=== PATIENT | male | born 1970 | race Native Hawaiian/Other Pacific Islander ===

== ENCOUNTER → 2020-05-31 | Outpatient (CLI) | payer BC ==
--- NOTE | 2020-05-31 08:26 | XR ---
EXAMINATION TYPE: XR knee complete RT DATE OF EXAM: 05/31/2020 COMPARISON: None HISTORY: Pain right knee TECHNIQUE: Three-view right knee FINDINGS: Joint spaces preserved. No acute fractures or dislocations are evident. Small to moderate j oint effusion may be present. IMPRESSION: 1. Small to moderate joint effusion. 2. No acute osseous abnormality. 3 follow-up exams can be performed 7-10 days from acute trauma for c ontinued pain.
== END | disposition home or self-care (01) ==
LOC: RADXRMAIN 07:35
PROVIDERS: ATTEND Family Medicine
DX: M25.561 Pain in right knee (principal)

== ENCOUNTER 2024-05-12 01:16 | Emergency (ER) | payer BC ==
[2024-05-12 01:24] VITALS: TEMP 97.9
--- NOTE | 2024-05-12 01:43 | ED ---
Neuro HPI - General Chief Complaint: Neuro Symptoms/Deficit Stated Complaint: Neuro Symptoms Time Seen by Provider: 05/12/24 01:17 Source: patient, RN notes reviewed, old records reviewed Mode of arrival: EMS Limitations: no limitations - History of Present Illness Is the patient presenting with stroke symptoms?: No -: minutes(s) Initial Comments: This is a 53-year-old male with sudden onset of vertiginous symptoms left arm numbness requiring pain weak and tingling of the arm and throughout his left side left side. Patient also noticed that the room was spinning, continued to have room spinning off balance since he fell off his bed landing on the ground because he felt significantly off balance. Patient's balance issues have improved on arrival to the emergency department, also felt maybe shortness of breath and concern for possible syncopal event. Patient feels better on ambulance arrival into the ER feels well on arrival to the emergency department. Place: home Severity: severe Improves With: none Worsens With: none Context: sudden onset Associated Symptoms: denies other symptoms Treatments Prior to Arrival: none - Related Data Home Medications: Home Medications Medication Instructions Recorded Confirmed Loratadine 10 mg PO DAILY 05/16/24 05/16/24 lisinopriL [Zestril] 10 mg PO DAILY 05/16/24 05/16/24 Previous Rx's Medication Instructions Recorded Aspirin [Adult Low Dose Aspirin EC] 81 mg PO DAILY 30 Days #30 tab 05/20/24 Atorvastatin [Lipitor] 20 mg PO HS 30 Days #30 tablet 05/20/24 Clopidogrel [Plavix] 75 mg PO DAILY 21 Days #21 tab 05/20/24 Heparin Sodium,Porcine (1 ml) 5,000 unit SQ Q8HR each 05/20/24 [Heparin Sodium] Pantoprazole [Protonix] 40 mg PO DAILY 30 Days #30 tab 05/20/24 Allergies/Adverse Reactions: Allergies Allergy/AdvReac Type Severity Reaction Status Date / Time No Known Allergies Allergy Verified 05/16/24 08:43 Review of Systems ROS Statement: Those systems with pertinent positive or pertinent negative responses have been documented in the HPI. ROS Other: All systems not noted in ROS Statement are negative. General Exam - General Exam Comments Initial Comments: Patient is having vertiginous symptoms Nystagmus NIH of 0 Limitations: no limitations General appearance: alert, in no apparent distress, anxious Head exam: Present: atraumatic, normocephalic, normal inspection Eye exam: Present: normal appearance, PERRL, EOMI, nystagmus. Absent: scleral icterus, conjunctival injection, periorbital swelling ENT exam: Present: normal exam, mucous membranes moist Neck exam: Present: normal inspection. Absent: tenderness, meningismus, lymphadenopathy Respiratory exam: Present: normal lung sounds bilaterally. Absent: respiratory distress, wheezes, rales, rhonchi, stridor Cardiovascular Exam: Present: regular rate, normal rhythm, normal heart sounds. Absent: systolic murmur, diastolic murmur, rubs, gallop, clicks GI/Abdominal exam: Present: soft, normal bowel sounds. Absent: distended, tenderness, guarding, rebound, rigid Extremities exam: Present: normal inspection, full ROM, normal capillary refill. Absent: tenderness, pedal edema, joint swelling, calf tenderness Back exam: Present: normal inspection Neurological exam: Present: alert, oriented X3, CN II-XII intact Psychiatric exam: Present: normal affect, normal mood Skin exam: Present: warm, dry, intact, normal color. Absent: rash Stroke MDM - Lab Data Result diagrams: 05/12/24 01:57 05/12/24 01:57 Lab Results 05/12/24 05/12/24 05/12/24 Range/Units 01:57 01:57 01:57 WBC 6.3 (3.8-10.6) k/uL RBC 4.86 (4.30-5.90) m/uL Hgb 13.5 (13.0-17.5) gm/dL Hct 40.7 (39.0-53.0) % MCV 83.8 (80.0-100.0) fL MCH 27.9 (25.0-35.0) pg MCHC 33.2 (31.0-37.0) g/dL RDW 13.1 (11.5-15.5) % Plt Count 223 (150-450) k/uL MPV 7.6 Neutrophils % 52 % Lymphocytes % 33 % Monocytes % 6 % Eosinophils % 6 % Basophils % 1 % Neutrophils # 3.3 (1.3-7.7) k/uL Lymphocytes # 2.1 (1.0-4.8) k/uL Monocytes # 0.4 (0-1.0) k/uL Eosinophils # 0.4 (0-0.7) k/uL Basophils # 0.0 (0-0.2) k/uL PT 10.6 (10.0-12.5) sec INR 1.0 (<1.2) APTT 21.2 L (22.0-30.0) sec Sodium 140 (137-145) mmol/L Potassium 3.6 (3.5-5.1) mmol/L Chloride 107 (98-107) mmol/L Carbon Dioxide 23 (22-30) mmol/L Anion Gap 10 mmol/L BUN 21 H (9-20) mg/dL Creatinine 0.87 (0.66-1.25) mg/dL Est GFR (CKD-EPI)AfAm >90 (>60 ml/min/1.73 sqM) Est GFR (CKD-EPI)NonAf >90 (>60 ml/min/1.73 sqM) Glucose 107 H (74-99) mg/dL Calcium 9.6 (8.4-10.2) mg/dL Total Bilirubin 0.4 (0.2-1.3) mg/dL AST 29 (17-59) U/L ALT 33 (4-49) U/L Alkaline Phosphatase 95 (38-126) U/L Creatine Kinase 94 (55-170) U/L Troponin I (0.000-0.034) ng/mL Total Protein 6.8 (6.3-8.2) g/dL Albumin 4.3 (3.5-5.0) g/dL Serum Alcohol <10 mg/dL 05/12/24 Range/Units 01:57 WBC (3.8-10.6) k/uL RBC (4.30-5.90) m/uL Hgb (13.0-17.5) gm/dL Hct (39.0-53.0) % MCV (80.0-100.0) fL MCH (25.0-35.0) pg MCHC (31.0-37.0) g/dL RDW (11.5-15.5) % Plt Count (150-450) k/uL MPV Neutrophils % % Lymphocytes % % Monocytes % % Eosinophils % % Basophils % % Neutrophils # (1.3-7.7) k/uL Lymphocytes # (1.0-4.8) k/uL Monocytes # (0-1.0) k/uL Eosinophils # (0-0.7) k/uL Basophils # (0-0.2) k/uL PT (10.0-12.5) sec INR (<1.2) APTT (22.0-30.0) sec Sodium (137-145) mmol/L Potassium (3.5-5.1) mmol/L Chloride (98-107) mmol/L Carbon Dioxide (22-30) mmol/L Anion Gap mmol/L BUN (9-20) mg/dL Creatinine (0.66-1.25) mg/dL Est GFR (CKD-EPI)AfAm (>60 ml/min/1.73 sqM) Est GFR (CKD-EPI)NonAf (>60 ml/min/1.73 sqM) Glucose (74-99) mg/dL Calcium (8.4-10.2) mg/dL Total Bilirubin (0.2-1.3) mg/dL AST (17-59) U/L ALT (4-49) U/L Alkaline Phosphatase (38-126) U/L Creatine Kinase (55-170) U/L Troponin I <0.012 (0.000-0.034) ng/mL Total Protein (6.3-8.2) g/dL Albumin (3.5-5.0) g/dL Serum Alcohol mg/dL - NIH Stroke Scale 1a. Level of Consciousness: (0) alert 1b. LOC Questions: (0) answers correctly 1c. LOC Commands: (0) performs tasks correctly 2. Best Gaze: (0) normal 3. Visual: (0) no visual loss 4. Facial Palsy: (0) normal symmetrical movement 5a. Motor Arm Left: (0) no drift 5b. Motor Arm Right: (0) no drift 6a. Motor Leg Left: (0) no drift 6b. Motor Leg Right: (0) no drift 7. Limb Ataxia: (0) absent 8. Sensory: (0) normal 9. Best Language: (0) no aphasia 10. Dysarthria: (0) normal 11. Extinction/Inattention: (0) no abnormality - Thrombolytic Inclusion/Exclusion Thrombolytic Exclusion Criteria: Onset of Symptoms Unknown (Woke with symptoms) - Medical Decision Making 53 male to ER for evaluation. Patient has CT brain CTA head neck negative for acute disease, no history of cholesterol diabetes high blood pressure, does admit to drinking beer last night. Patient has no acute findings or symptoms here in the ER his symptoms resolved spontaneously and continue to remain resolved, patient states that he feels improved and feels good without headache or neurological complaint and can be discharged home - Radiology Data Radiology results: report reviewed (CXR Negative for acute disease CT CTA ne gative for acute disease), image reviewed - EKG Data -: EKG Interpreted by Me (EKG is sinus 99 MD 170 QRS 82 QTc 404) Past Medical History Past Medical History: No Reported History History of Any Multi-Drug Resistant Organisms: None Reported Past Surgical History: No Surgical Hx Reported Past Psychological History: No Psychological Hx Reported Smoking Status: Former smoker Past Alcohol Use History: Daily Past Drug Use History: None Reported Course Vital Signs 05/12/24 05/12/24 05/12/24 01:17 02:30 03:30 Temperature 97.9 F Pulse Rate 99 93 90 Respiratory 18 18 18 Rate Blood Pressure 152/99 143/92 147/92 O2 Sat by Pulse 96 96 96 Oximetry 05/12/24 05/12/24 04:00 04:30 Temperature Pulse Rate 88 82 Respiratory 18 14 Rate Blood Pressure 147/92 145/91 O2 Sat by Pulse 95 95 Oximetry - Reevaluation(s) Reevaluation #1: 05/12/24 02:16 Medical records reviewed Reevaluation #2: Symptoms unchanged Patient remains without symptoms on arrival to the ER Patient has no neurological changes or symptoms here in the emergency department Reevaluation #3: Patient informed of results and questions answered Patient remained without symptoms here in the emergency room with no ros rological complaint Patient does admit to drinking beer last night before bed Patient is to consider daily ASA, follow up re BP mildly elevated Reevaluation #4: Was pt. sent in by a medical professional or institution (, PA, [employer], urgent care, hospital, or usp...) When possible be specific @ -no Did you speak to anyone other than the patient for history (EMS, parent, family, police, friend...)? What history was obtained from this source @ -no Did you review nursing and triage notes (agree or disagree)? Why? @ -agree Are old charts reviewed (outside hosp., previous admission, EMS record, old EKG, old radiological studies, urgent care reports/EKG's, usp records)? Report findings @ -yes Differential Diagnosis (chest pain, altered mental status, abdominal pain women, abdominal pain men, vaginal bleeding, weakness, fever, dyspnea, syncope, headache, dizziness, GI bleed, back pain, seizure, CVA, palpatations, mental health, musculoskeletal)? @ -prior EKG interpreted by me (3pts min.). @ -yes X-rays interpreted by me (1pt min.). @ -yes negative for acute disease CT interpreted by me (1pt min.). @ -yes negative for acute disease U/S interpreted by me (1pt. min.). @ -no What testing was considered but not performed or refused? (CT, X-rays, U/S, labs)? Why? @ -none What meds were considered but not given or refused? Why? @ -none Did you discuss the management of the patient with other professionals (professionals i.e. , PA, [employer], lab, RT, psych nurse, adoption social worker, rocket motor mechanic, teacher, [employer] plans staff officer, welfare case worker)? Give summary @ -no Was smoking cessation discussed for >3mins.? @ -no Was critical care preformed (if so, how long)? @ -no Were there social determinants of health that impacted care today? How? (Homeles sness, low income, unemployed, alcoholism, drug addiction, transportation, low edu. Level, literacy, decrease access to med. care, penitentiary, rehab)? @ -none Was there de-escalation of care discussed even if they declined (Discuss DNR or withdrawal of care, Hospice)? DNR status @ -no What co-morbidities impacted this encounter? (DM, HTN, Smoking, COPD, CAD, Cancer, CVA, ARF, Chemo, Hep., AIDS, mental health diagnosis, sleep apnea, morbid obesity)? @ -none Was patient admitted / discharged? Hospital course, mention meds given and route, prescriptions, significant lab abnormalities, going to OR and other pertinent info. @ - 53 male to ER for evaluation. Patient has no acute findings or symptoms here in the ER feels improved and can be discharged home Discharge Undiagnosed new problem with uncertain prognosis? @ -no Drug Therapy requiring intensive monitoring for toxicity (Heparin, Nitro, Insulin, Cardizem)? @ -no Were any procedures done? @ -no Diagnosis/symptom? @ -Vertigo Acute, or Chronic, or Acute on Chronic? @ -Acute Uncomplicated (without systemic symptoms) or Complicated (systemic symptoms)? @ -Complicated Side effects of treatment? @ -no Exacerbation, Progression, or Severe Exacerbation? @ -exacerbation Poses a threat to life or bodily function? How? (Chest pain, [place], [place], pneumonia, PE, COPD, DKA, ARF, appy, cholecystitis, CVA, Diverticulitis, Homicidal, Suicidal, threat to staff... and all critical care pts) @ -yes Reevaluation #5: Differential CVA Ischemic stroke, hemorrhagic stroke, brain tumor, atypical migraine, Wernicke's encephalopathy, seizure, multiple sclerosis, meningitis, encephalitis, hypoglycemia, Guillain-Lai, electrolytes disturbance, myasthenia gravis.... This is not meant to be an all-inclusive list Disposition Clinical Impression: Vertigo Disposition: HOME SELF-CARE Condition: Good Instructions (If sedation given, give patient instructions): Vertigo (ED) Is patient prescribed a controlled substance at d/c from ED?: No Referrals: None,Stated [Primary Care Provider] - 1-2 days Time of Disposition: 05:00
[2024-05-12] MEDS: SODIUM CHLORIDE 0.9% 1,000 ML IV STA (01:59)
[2024-05-12 02:06] LABS: Basophils % (A) 1 %; Eosinophils # (A) 0.4 k/uL (0-0.7); Eosinophils % (A) 6 %; HCT 40.7 % (39.0-53.0); HGB 13.5 gm/dL (13.0-17.5); Lymphocytes # (A) 2.1 k/uL (1.0-4.8); Lymphocytes % (A) 33 %; MCH 27.9 pg (25.0-35.0); MCHC 33.2 g/dL (31.0-37.0); MCV 83.8 fL (80.0-100.0); Mean Platelet Volume 7.6; Monocytes # (A) 0.4 k/uL (0-1.0); Monocytes % (A) 6 %; Neutrophils # (A) 3.3 k/uL (1.3-7.7); Neutrophils % (A) 52 %; Platelet Count 223 k/uL (150-450); RBC 4.86 m/uL (4.30-5.90); RDW 13.1 % (11.5-15.5); WBC 6.3 k/uL (3.8-10.6)
[2024-05-12] MEDS: ONDANSETRON 4 MG/2 ML VIAL IVP STA (02:13)
[2024-05-12 02:22] LABS: ALT 33 U/L (4-49); AST 29 U/L (17-59); African American GFR (CKD) >90 (>60 ml/min/1.73 sqM); Albumin 4.3 g/dL (3.5-5.0); Alcohol <10 mg/dL; Alkaline Phosphatase 95 U/L (38-126); Anion Gap 10 mmol/L; Blood Urea Nitrogen 21 mg/dL (9-20); Calcium 9.6 mg/dL (8.4-10.2); Carbon Dioxide 23 mmol/L (22-30); Chloride 107 mmol/L (98-107); Creatine Kinase 94 U/L (55-170); Glucose 107 mg/dL (74-99); Non-African American GFR(CKD) >90 (>60 ml/min/1.73 sqM); Potassium 3.6 mmol/L (3.5-5.1); Prothrombin Time 10.6 sec (10.0-12.5); Sodium 140 mmol/L (137-145); Total Bilirubin 0.4 mg/dL (0.2-1.3); Total Protein 6.8 g/dL (6.3-8.2)
[2024-05-12 02:35] LABS: Partial Thromboplastin Time 21.2 sec (22.0-30.0)
--- NOTE | 2024-05-12 03:09 | CT ---
EXAM: CT Angiography Head With Intravenous Contrast CLINICAL HISTORY: ITS.REASON CT Reason: Neuro deficit, acute, stroke suspected TECHNIQUE: Axial computed tomographic angiography images of the head with intravenous contrast. CTDI is 18.2 mGy and DLP is 19.2 mGy-cm. This CT exam was performed using one or more of the following dose reduction techniques: automated exposure control, adjustment of the mA and/or kV according to patient size, and/or use of iterative reconstruction technique. MIP reconstructed images were created and reviewed. COMPARISON: No relevant prior studies available. FINDINGS: Right internal carotid artery: No significant stenosis. No aneurysm. Right anterior cerebral artery: No significant stenosis. No aneurysm. Right middle cerebral artery: No significant stenosis. No aneurysm. Right posterior cerebral artery: No significant stenosis. No aneurysm. Right vertebral artery: Unremarkable. Left internal carotid artery: No significant stenosis. No aneurysm. Left anterior cerebral artery: No significant stenosis. No aneurysm. Left middle cerebral artery: No significant stenosis. No aneurysm. Left posterior cerebral artery: No significant stenosis. No aneurysm. Left vertebral artery: Unremarkable. Basilar artery: No significant stenosis. No aneurysm. IMPRESSION: No significant stenosis. EXAM: CT Angiography Neck With Intravenous Contrast CLINICAL HISTORY: ITS.REASON CT Reason: Neuro deficit, acute, stroke suspected TECHNIQUE: Routine carotid CT angiography protocol was performed with intravenous contrast. NASCET criteria using the distal ICAs for comparison were used for evaluation of stenoses. CTDI is 20.8 mGy and DLP is 935.4 mGy-cm. This CT exam was performed using one or more of the following dose reduction techniques: automated exposure control, adjustment of the mA and/or kV according to patient size, and/or use of iterative reconstruction technique. MIP reconstructed images were created and reviewed. COMPARISON: None. FINDINGS: VASCULATURE: Right common carotid artery: No significant stenosis. No dissection. Right internal carotid artery: No significant stenosis. No dissection. Right vertebral artery: No significant stenosis. No dissection. Left common carotid artery: No significant stenosis. No dissection. Left internal carotid artery: No significant stenosis. No dissection. Left vertebral artery: No significant stenosis. No dissection. NECK: Lung apices: Clear. CAROTID STENOSIS REFERENCE USING NASCET CRITERIA: % ICA stenosis = (1 - narrowest ICA diameter/diameter of distal cervical ICA) x 100. Mild - <50% stenosis. Moderate - 50-69% stenosis. Severe - 70-94% stenosis. Near occlusion - 95-99% stenosis. Occluded - 100% stenosis. IMPRESSION: No significant stenosis.
--- NOTE | 2024-05-12 03:25 | CT ---
EXAM: CT Head Without Intravenous Contrast CLINICAL HISTORY: ITS.REASON CT Reason: Neuro deficit, acute, stroke suspected TECHNIQUE: Axial computed tomography images of the head/brain without intravenous contrast. CTDI is 49.2 mGy and DLP is 1260 mGy-cm. This CT exam was performed using one or more of the following dose reduction techniques: automated exposure control, adjustment of the mA and/or kV according to patient size, and/or use of iterative reconstruction technique. COMPARISON: No relevant prior studies available. FINDINGS: No acute intracranial hemorrhage. No midline shift or mass effect. The territorial vazquez-white matter differentiation is maintained throughout. The ventricles and sulci are commensurate with age. The visualized orbits appear grossly unremarkable. The calvarium is intact. The visualized paranasal sinuses and mastoid air cells are grossly clear. IMPRESSION: No acute intracranial hemorrhage, midline shift, or mass effect.
[2024-05-12 04:42] VITALS: BP 145/91; PULSE 82; RESP 14
--- NOTE | 2024-05-12 04:55 | XR ---
EXAM: XR Chest, 2 Views CLINICAL HISTORY: ITS.REASON XR Reason: altered mental status TECHNIQUE: Frontal and lateral views of the chest. COMPARISON: No relevant prior studies available. FINDINGS: Lungs: Unremarkable. No pneumonia. Pleural space: Unremarkable. No pneumothorax. Heart: Unremarkable. No cardiomegaly. Mediastinum: Unremarkable. Normal mediastinal contour. Bones/joints: Unremarkable. No acute fracture. IMPRESSION: No pneumonia.
== END 2024-05-12 05:13 | disposition home or self-care (01) ==
LOC: EC 01:16
CPT/HCPCS: 36415; 70450; 70496; 70498; 71046; 80053; 80320; 82550; 84484; 85025; 85610; 85730; 93005; 96360; 99285

== ENCOUNTER 2024-05-16 01:11 | Inpatient (IN) | payer BC ==
--- NOTE | 2024-05-16 02:22 | ED ---
General Adult HPI - General Chief complaint: Neuro Symptoms/Deficit Stated complaint: Numbness Time Seen by Provider: 05/16/24 01:41 Source: patient Mode of arrival: ambulatory Limitations: no limitations - History of Present Illness Initial comments: Patient is a 53-year-old gentleman the past medical history of hypertension presenting for slurred speech, right arm and right leg weakness x 3 days. Patient states that he presented to the emergency department on Saturday for dizziness that he thought was vertigo. CT brain done at that time did not show any acute issues and patient was discharged home for outpatient follow-up. Patient noticed that over the last 2 to 3 days he has had weakness in his right hand, difficulty grasping objects and decree sensation as well as intermittent slurred speech. He has noticed gradually worsening right foot drop especially prominent today. Denies any changes in vision, denies any dizziness or headaches currently. Denies chest pain or shortness of breath. Denies nausea vomiting. No fevers. No neck pain. He did go to see his primary care doctor Dr. Carter today and was started on lisinopril. Patient did take 1 dose of his lisinopril. No hx prior CVA or ACS. - Related Data Allergies Allergy/AdvReac Type Severity Reaction Status Date / Time No Known Allergies Allergy Verified 05/16/24 01:16 Review of Systems ROS Statement: Those systems with pertinent positive or pertinent negative responses have been documented in the HPI. ROS Other: All systems not noted in ROS Statement are negative. Constitutional: Denies: fever, chills Eyes: Denies: vision change Respiratory: Denies: dyspnea Cardiovascular: Denies: chest pain Gastrointestinal: Denies: abdominal pain, nausea, vomiting Neurological: Reports: weakness, numbness, abnormal gait. Denies: headache, confusion, vertigo Past Medical History Past Medical History: Hypertension History of Any Multi-Drug Resistant Organisms: None Reported Past Surgical History: No Surgical Hx Reported Past Psychological History: No Psychological Hx Reported Smoking Status: Former smoker Past Alcohol Use History: Daily Past Drug Use History: None Reported General Exam - General Exam Comments Initial Comments: PE: CONSTITUTIONAL: No apparent distress, well appearing SKIN: Warm, dry, no jaundice, hives or petechiae EYES: Pupils are equally round, extraocular movements intact without nystagmus, clear conjunctiva, non-icteric sclera HENT: Normocephalic, atraumatic, moist mucus membranes, oropharynx clear without exudates NECK: , Full range of motion, normal appearance PULMONARY: Clear to auscultation without wheezes, rhonchi, or rales, normal excursion, no accessory muscle use and no stridor CARDIOVASCULAR: Regular rate, rhythm, normal S1 and S2. No appreciated murmurs, rubs or gallops. Strong radial pulses with intact distal perfusion. No lower extremity edema GASTROINTESTINAL: Soft, non-tender, non-distended, no palpable masses, no rebound or guarding. No hepatosplenomegaly MUSCULOSKELETAL: Extremities have no gross deformity, no edema, redness, or swelling. No calf swelling ot TTP. NEUROLOGIC: [_a/o x 3, GCS 15, normal mentation and speech. Cranial nerves: II (visual larios without defects), III, IV and (extraocular movements are intact, pupils are equal with normal reaction to light), V (intact facial sensation and jaw opening), VII (no facial droop), IX and X (normal palate movement, midline uvula, normal voice, though barely perceptible slurred speech intermittently noted), XI (symmetrical shoulder shrug, XII (midline tongue protrusion). Motor strength 5 out of 5 in the left upper and left lower extremity, 4 out of 5 in the right upper and right lower extremity, slight decrease sensation in the right upper and right lower extremity compared to left. No abnormal movements. Normal muscle tone. No cerebellar signs ( [id number] normal) PSYCHIATRIC:_normal mood and affect, thought process is clear and linear Limitations: no limitations Course Vital Signs 05/16/24 05/16/24 05/16/24 01:13 01:30 02:30 Temperature 97.8 F Pulse Rate 74 80 71 Respiratory 18 18 18 Rate Blood Pressure 166/99 175/105 O2 Sat by Pulse 98 95 96 Oximetry 05/16/24 05/16/24 05/16/24 03:00 04:00 06:04 Temperature Pulse Rate 71 82 74 Respiratory 18 18 18 Rate Blood Pressure 170/103 172/90 171/102 O2 Sat by Pulse 95 97 95 Oximetry EKG Findings - EKG Comments: EKG Findings:: Sinus rhythm, rate 69 bpm, ID interval 170 ms, QRS duration 89 ms, QT/QTc 397/412 ms, normal axis, no ST elevations or depressions, no arrhythmia, compared to EKG performed on 05/12/2024, no significant changes from prior Medical Decision Making - Medical Decision Making Was pt. sent in by a medical professional or institution (, IVAN, HUMAN RESOURCES TRAINEE, urgent care, hospital, or jail...) When possible be specific @ -No Did you speak to anyone other than the patient for history (EMS, parent, family, police, friend...)? What history was obtained from this source @ -No Did you review nursing and triage notes (agree or disagree)? Why? @ -I reviewed and agree with nursing and triage notes Were old charts reviewed (outside hosp., previous admission, EMS record, old EKG, old radiological studies, urgent care reports/EKG's, jail records)? Report findings @ Reviewed CT brain and CTA performed this past saturday, negative for occlusion, hemorrhage or other acute process Differential Diagnosis (chest pain, altered mental status, abdominal pain women, abdominal pain men, vaginal bleeding, weakness, fever, dyspnea, syncope, headache, dizziness, GI bleed, back pain, seizure, CVA, palpatations, mental health, musculoskeletal)? @Differential CVA Ischemic stroke, hemorrhagic stroke, brain tumor, atypical migraine, Wernicke's encephalopathy, multiple sclerosis, hypoglycemia, electrolytes disturbance, peripheral neuropathy.... This is not meant to be an all-inclusive list EKG interpreted by me (3pts min.). @ -As above X-rays interpreted by me (1pt min.). @ -Reviewed chest x-ray, I see no cardiomegaly consolidations or effusions CT interpreted by me (1pt min.). @ -CT brain reviewed I see no evidence of hemorrhage or mass effect U/S interpreted by me (1pt. min.). @ -None done What testing was considered but not performed or refused? (CT, X-rays, U/S, labs)? Why? @ -None What meds were considered but not given or refused? Why? @ -None Did you discuss the management of the patient with other professionals (professionals i.e. IVAN Joaquin, HUMAN RESOURCES TRAINEE, lab, RT, psych nurse, social science research assistant, mail opener, teacher, business banking officer, briefcase sewer)? Give summary @ -No Was smoking cessation discussed for >3mins.? @ -No Was critical care preformed (if so, how long)? @ -No Were there social determinants of health that impacted care today? How? (Homelessness, low income, unemployed, alcoholism, drug addiction, transportation, low edu. Level, literacy, decrease access to med. care, [facility], rehab)? @ -No Was there de-escalation of care discussed even if they declined (Discuss DNR or withdrawal of care, Hospice)? @ -No What co-morbidities impacted this encounter? (DM, HTN, Smoking, COPD, CAD, C ancer, CVA, ARF, Chemo, Hep., AIDS, mental health diagnosis, sleep apnea, morbid obesity)? @ -HTN, obesity Was patient admitted / discharged? Hospital course, mention meds given and route, prescriptions, significant lab abnormalities, going to OR and other pertinent info. @ -Hospital course Admitted- Patient is a pleasant 53-year-old gentleman presenting today for approximately 3 days of right upper extremity weakness, worsening right lower extremity weakness and slurred speech. Patient has difficulty pinpointing exactly when his symptoms began but states that he feels he began this past Saturday after discharge from the emergency department on Saturday to which she had presented for dizziness. On my assessment patient does have barely perceptible intermittent slurred speech, 4-5 and 4-5 strength in the right upper and lower extremities compared to left and slight decreased sensation in the right upper and lower right lower extremity. A stroke alert was not called because patient's symptoms have been ongoing for the last 3 days, but did seem to worsen in the last 24 hours. Plan for CVA workup. Patient CT brain did show "Very subtle focal zones with decreased attenuation/acute infarction suspected in the left parietal fisher radiata". Patient is not a tNK candidate due to symptoms x 72 hours. I updated patient and fiance to findings, and discussed plan for admission for MRI. Pt agreeable with POC. CXR read by radiologist as borderline cardiomegaly, increased vascular markings. Otherwise, additional Labs reviewed. Grossly within normal limits. Abnormal values not concerning for acute pathology related to presenting complaint. Pt discussed with DASHAWN Felix with [facility]. Accepted for admission. Home lisinopril ordered. Undiagnosed new problem with uncertain prognosis? @ -No Drug Therapy requiring intensive monitoring for toxicity (Heparin, Nitro, Insulin, Cardizem)? @ -No Were any procedures done? @ -No Diagnosis/symptom? @ CVA Acute, or Chronic, or Acute on Chronic? @ Acute Uncomplicated (without systemic symptoms) or Complicated (systemic symptoms)? @ -Complicated Side effects of treatment? @ -No Exacerbation, Progression, or Severe Exacerbation? @ -No Poses a threat to life or bodily function? How? (Chest pain, USA, DC, pneumonia, PE, COPD, DKA, ARF, appy, cholecystitis, CVA, Diverticulitis, Homicidal, Suicidal, threat to staff... and all critical care pts) @ Yes - Lab Data Result diagrams: 05/16/24 01:05/16/24:30 Lab Results 05/16/24 05/16/24 05/16/24 Range/Units :30 : 01:30 WBC 6.9 (3.8-10.6) k/uL RBC 5.18 (4.30-5.90) m/uL Hgb 14.9 (13.0-17.5) gm/dL Hct 43.3 (39.0-53.0) % MCV 83.6 (80.0-100.0) fL MCH 28.7 (25.0-35.0) pg MCHC 34.3 (31.0-37.0) g/dL RDW 13.5 (11.5-15.5) % Plt Count 249 (150-450) k/uL MPV 8.8 Neutrophils % 63 % Lymphocytes % 28 % Monocytes % 5 % Eosinophils % 2 % Basophils % 1 % Neutrophils # 4.3 (1.3-7.7) k/uL Lymphocytes # 1.9 (1.0-4.8) k/uL Monocytes # 0.4 (0-1.0) k/uL Eosinophils # 0.2 (0-0.7) k/uL Basophils # 0.0 (0-0.2) k/uL PT 11.2 (10.0-12.5) sec INR 1.0 (<1.2) APTT 26.6 (22.0-30.0) sec Sodium 136 L (137-145) mmol/L Potassium 4.2 (3.5-5.1) mmol/L Chloride 109 H (98-107) mmol/L Carbon Dioxide 22 (22-30) mmol/L Anion Gap 5 mmol/L BUN 12 (9-20) mg/dL Creatinine 0.75 (0.66-1.25) mg/dL Est GFR (CKD-EPI)AfAm >90 (>60 ml/min/1.73 sqM) Est GFR (CKD-EPI)NonAf >90 (>60 ml/min/1.73 sqM) Glucose 108 H (74-99) mg/dL Calcium 9.8 (8.4-10.2) mg/dL Total Bilirubin 1.1 (0.2-1.3) mg/dL AST 34 (17-59) U/L ALT 39 (4-49) U/L Alkaline Phosphatase 93 (38-126) U/L Creatine Kinase 72 (55-170) U/L Troponin I (0.000-0.034) ng/mL Total Protein 7.5 (6.3-8.2) g/dL Albumin 4.8 (3.5-5.0) g/dL 05/16/24 Range/Units 01:30 WBC (3.8-10.6) k/uL RBC (4.30-5.90) m/uL Hgb (13.0-17.5) gm/dL Hct (39.0-53.0) % MCV (80.0-100.0) fL MCH (25.0-35.0) pg MCHC (31.0-37.0) g/dL RDW (11.5-15.5) % Plt Count (150-450) k/uL MPV Neutrophils % % Lymphocytes % % Monocytes % % Eosinophils % % Basophils % % Neutrophils # (1.3-7.7) k/uL Lymphocytes # (1.0-4.8) k/uL Monocytes # (0-1.0) k/uL Eosinophils # (0-0.7) k/uL Basophils # (0-0.2) k/uL PT (10.0-12.5) sec INR (<1.2) APTT (22.0-30.0) sec Sodium (137-145) mmol/L Potassium (3.5-5.1) mmol/L Chloride (98-107) mmol/L Carbon Dioxide (22-30) mmol/L Anion Gap mmol/L BUN (9-20) mg/dL Creatinine (0.66-1.25) mg/dL Est GFR (CKD-EPI)AfAm (>60 ml/min/1.73 sqM) Est GFR (CKD-EPI)NonAf (>60 ml/min/1.73 sqM) Glucose (74-99) mg/dL Calcium (8.4-10.2) mg/dL Total Bilirubin (0.2-1.3) mg/dL AST (17-59) U/L ALT (4-49) U/L Alkaline Phosphatase (38-126) U/L Creatine Kinase (55-170) U/L Troponin I <0.012 (0.000-0.034) ng/mL Total Protein (6.3-8.2) g/dL Albumin (3.5-5.0) g/dL Disposition Clinical Impression: Cerebrovascular accident (CVA) Disposition: ADMITTED IP TO THIS HOSP Condition: Stable
[2024-05-16 02:59] LABS: ALT 39 U/L (4-49); AST 34 U/L (17-59); African American GFR (CKD) >90 (>60 ml/min/1.73 sqM); Albumin 4.8 g/dL (3.5-5.0); Alkaline Phosphatase 93 U/L (38-126); Anion Gap 5 mmol/L; Blood Urea Nitrogen 12 mg/dL (9-20); Calcium 9.8 mg/dL (8.4-10.2); Carbon Dioxide 22 mmol/L (22-30); Chloride 109 mmol/L (98-107); Creatine Kinase 72 U/L (55-170); Glucose 108 mg/dL (74-99); Non-African American GFR(CKD) >90 (>60 ml/min/1.73 sqM); Potassium 4.2 mmol/L (3.5-5.1); Sodium 136 mmol/L (137-145); Total Bilirubin 1.1 mg/dL (0.2-1.3); Total Protein 7.5 g/dL (6.3-8.2)
[2024-05-16] MEDS: SODIUM CHLORIDE 0.9% 500 ML 500 ML IV STA (02:59)
--- NOTE | 2024-05-16 03:24 | CT ---
EXAM: CT Head Without Intravenous Contrast CLINICAL HISTORY: ITS.REASON CT Reason: Neuro deficit, acute, stroke suspected TECHNIQUE: Axial computed tomography images of the head/brain without intravenous contrast. CTDI is 48.8 mGy and DLP is 1260 mGy-cm. This CT exam was performed using one or more of the following dose reduction techniques: automated exposure control, adjustment of the mA and/or kV according to patient size, and/or use of iterative reconstruction technique. COMPARISON: CT head: 05/12/2024 FINDINGS: Brain: There is a very subtle focal zone with decreased attenuation suspected in the left parietal fisher radiata (series 201 image 37). No hemorrhage. No significant white matter disease. No mass-effect or midline shift. Farr-white matter differentiation is maintained. There are no extra-axial fluid collections. Ventricles: Unremarkable. No ventriculomegaly. Bones/joints: Unremarkable. No acute fracture. Soft tissues: Unremarkable. Sinuses: Unremarkable as visualized. No acute sinusitis. Mastoid air cells: Unremarkable as visualized. No mastoid effusion.. IMPRESSION: A very subtle focal zones with decreased attenuation/acute infarction suspected in the left parietal fisher radiata. The need for MRI brain for confirmation can be determined clinically.. <MYCVCSECTION> Communications: 05/16/24 03:32 Call Doctor Regarding Stroke, called Dr. Silvestre on 05/16 03:32 (-04:00)
[2024-05-16 03:26] LABS: Basophils % (A) 1 %; Eosinophils # (A) 0.2 k/uL (0-0.7); Eosinophils % (A) 2 %; HCT 43.3 % (39.0-53.0); HGB 14.9 gm/dL (13.0-17.5); Lymphocytes # (A) 1.9 k/uL (1.0-4.8); Lymphocytes % (A) 28 %; MCH 28.7 pg (25.0-35.0); MCHC 34.3 g/dL (31.0-37.0); MCV 83.6 fL (80.0-100.0); Mean Platelet Volume 8.8; Monocytes # (A) 0.4 k/uL (0-1.0); Monocytes % (A) 5 %; Neutrophils # (A) 4.3 k/uL (1.3-7.7); Neutrophils % (A) 63 %; Platelet Count 249 k/uL (150-450); RBC 5.18 m/uL (4.30-5.90); RDW 13.5 % (11.5-15.5); WBC 6.9 k/uL (3.8-10.6)
[2024-05-16 03:43] LABS: Partial Thromboplastin Time 26.6 sec (22.0-30.0); Prothrombin Time 11.2 sec (10.0-12.5)
--- NOTE | 2024-05-16 03:50 | CT ---
EXAM: CT Angiography Head With Intravenous Contrast CLINICAL HISTORY: ITS.REASON CT Reason: Neuro deficit, acute, stroke suspected TECHNIQUE: Axial computed tomographic angiography images of the head with intravenous contrast. CTDI is 43.2 mGy and DLP is 1015 mGy-cm. This CT exam was performed using one or more of the following dose reduction techniques: automated exposure control, adjustment of the mA and/or kV according to patient size, and/or use of iterative reconstruction technique. MIP reconstructed images were created and reviewed. COMPARISON: CTA head: 05/16/2024 FINDINGS: Suboptimal exam in the absence of 3D reformats. Right internal carotid artery: No acute findings. Intracranial segment is patent with no significant stenosis. No aneurysm. Right anterior cerebral artery: Unremarkable. No occlusion or significant stenosis. No aneurysm. Right middle cerebral artery: Unremarkable. No occlusion or significant stenosis. No aneurysm. Right posterior cerebral artery: Unremarkable. No occlusion or significant stenosis. No aneurysm. Right vertebral artery: Unremarkable as visualized. Left internal carotid artery: No acute findings. Intracranial segment is patent with no significant stenosis. No aneurysm. Left anterior cerebral artery: Unremarkable. No occlusion or significant stenosis. No aneurysm. Left middle cerebral artery: There is probably occlusion of the left MCA bifurcation segment (series 510 image 11). No significant stenosis. No aneurysm. Left posterior cerebral artery: Unremarkable. No occlusion or significant stenosis. No aneurysm. Left vertebral artery: Unremarkable as visualized. Basilar artery: Unremarkable. No occlusion or significant stenosis. No aneurysm. Other findings: . IMPRESSION: Technically suboptimal exam. Probably there is occlusion of the left MCA bifurcation. Recommend confirmation with 3D reformats. . Otherwise no large vessel occlusion, significant stenosis or aneurysm noted. EXAM: CT Angiography Neck With Intravenous Contrast CLINICAL HISTORY: ITS.REASON CT Reason: Neuro deficit, acute, stroke suspected TECHNIQUE: Routine carotid CT angiography protocol was performed with intravenous contrast. NASCET criteria using the distal ICAs for comparison were used for evaluation of stenoses. This CT exam was performed using one or more of the following dose reduction techniques: automated exposure control, adjustment of the mA and/or kV according to patient size, and/or use of iterative reconstruction technique. MIP reconstructed images were created and reviewed. COMPARISON: None. FINDINGS: VASCULATURE: Right common carotid artery: Unremarkable. No occlusion or significant stenosis. No dissection. Right internal carotid artery: Unremarkable. Extracranial segment is patent with no occlusion or significant stenosis. No dissection. Right external carotid artery: Unremarkable. No occlusion. Right vertebral artery: Unremarkable. No occlusion or significant stenosis. No dissection. Left common carotid artery: Tortuosity. No occlusion or significant stenosis. No dissection. Left internal carotid artery: Marked tortuosity. Extracranial segment is patent with no occlusion or significant stenosis. No dissection. Left external carotid artery: Unremarkable. No occlusion. Left vertebral artery: Unremarkable. No occlusion or significant stenosis. No dissection. NECK: Bones/joints: No acute fracture. C5-C7 mild/moderate degenerative spondylolysis. Soft tissues: Unremarkable. Lung apices: Clear. CAROTID STENOSIS REFERENCE USING NASCET CRITERIA: % ICA stenosis = (1 - narrowest ICA diameter/diameter of distal cervical ICA) x 100. Mild - <50% stenosis. Moderate - 50-69% stenosis. Severe - 70-94% stenosis. Near occlusion - 95-99% stenosis. Occluded - 100% stenosis. IMPRESSION: Negative CTA neck.
[2024-05-16] MEDS ORDERED: NALOXONE 0.4 MG/ML 1 ML VIAL IV PRN (04:02)
--- NOTE | 2024-05-16 04:13 | XR ---
EXAM: XR Chest, 2 Views CLINICAL HISTORY: ITS.REASON XR Reason: altered mental status TECHNIQUE: Frontal and lateral views of the chest. COMPARISON: X-ray chest: 05/12/2024 FINDINGS: Lungs: Bilateral perihilar mildly prominent bronchovascular markings, mostly in the left lower lung. No consolidation. Pleural space: Persistently elevated right hemidiaphragm. No pneumothorax. Heart: Borderline cardiomegaly. Mediastinum: Unremarkable. Normal mediastinal contour. Bones/joints: Osteopenia. No acute fracture.. IMPRESSION: Borderline cardiomegaly. Mildly prominent bronchovascular markings, question mild pulmonary vascular congestion. Clinical correlation advised .
[2024-05-16] MEDS: lisinopriL 10 MG TAB PO SCH (08:04)
[2024-05-16 11:00] LABS: Amphetamine Screen,Urine Not Detected (NotDetected); Barbiturate Screen,Urine Not Detected (NotDetected); Benzodiazepines Screen,Urine Not Detected (NotDetected); Cocaine Screen,Urine Not Detected (NotDetected); Methadone Screen, Urine Not Detected (NotDetected); Opiate Screen,Urine Not Detected (NotDetected); Oxycodone Screen, Urine Not Detected (NotDetected); Phencyclidine Screen,Urine Not Detected (NotDetected); Tricyclic Antidepressant,Urine Not Detected (NotDetected); Urn Cannabinoid Scrn Not Detected (NotDetected)
--- NOTE | 2024-05-16 12:29 | MR ---
EXAMINATION TYPE: MR brain wo con DATE OF EXAM: 05/16/2024 12:15 PM CLINICAL INDICATION: Male, 53 years old with history of Right extremity weakness; PHH, RUE/RLE weakne ss, CVA. COMPARISON: 05/16/2024. TECHNIQUE: Multi planar, multi sequence imaging was performed through the brain including: T1, T2, In version recovery, Diffusion weighted imaging, and gradient echo imaging. No gadolinium was given. FINDINGS: Areas of restricted diffusion within the left fisher radiata Mild cerebral atrophy with proportional dilation of ventricular system. Scattered foci of high T2 s ignal intensity are seen within the periventricular white matter. Midline structures show no abnormal ity. The susceptibility weighted images do not reveal any evidence for micro-hemorrhage. The bone marrow signal is within normal limits. Paranasal sinuses and mastoid air cells: No significant paranasal sinus disease. Visualized orbits: Orbital contents are intact. IMPRESSION: 1. Acute/subacute CVA involving the left basal ganglia/fisher radiata. 2. Nonspecific white matter changes, likely secondary to small vessel ischemic disease. [facility], , 05/16/2024 12:27 PM
--- NOTE | 2024-05-16 12:35 | MR ---
EXAMINATION TYPE: MR angio head wo con DATE OF EXAM: 05/16/2024 12:22 PM CLINICAL INDICATION: Male, 53 years old with history of ??Left MCA occlusion; PHH, RUE/RLE weakness, CVA. Possible MCA occlusion. COMPARISON: CT 05/16/2024 Technical: 3-D [id number] Axial with MIP reconstruction created on a separate workstation.. IV Contrast: None Findings: Vertebral arteries: The vertebral arteries are patent. Vertebral arteries are: Codominant. Basilar artery: The basilar artery is intact. The basilar artery bifurcation is normal. Internal Carotid arteries: The cervical, petrous, cavernous and supraclinoid segments are normal. GEORGETTE: Patent with no evidence of aneurysm. ACOM: Present without evidence of aneurysm. MCA: Patent with no evidence of aneurysm. POSTAL SORTING OFFICER: Patent with no evidence of aneurysm. PCOM: Hypoplastic right and normal left. IMPRESSION: No evidence of aneurysm or significant stenosis. The left MCA appears patent in the field of view. [facility], , 05/16/2024 12:33 PM
[2024-05-16] MEDS: ASPIRIN 81 MG PO STA (12:57)
[2024-05-16] MEDS: CLOPIDOGREL 75 MG TAB PO STA (12:58)
--- NOTE | 2024-05-16 13:35 | P.CNNES ---
History of Present Illness Consult date: 05/16/24 Requesting physician: Apryl Silvestre Reason for Consult: CVA History of Present Illness: This is a telemedicine neurology consultation performed on patient, today on 05/16/2024 in assistance with Tish Cano. Patient is a 53-year-old right-handed male came to the hospital early this morning at 1:11 AM for strokelike symptoms. Patient states that on Saturday night he fell out of bed, couldn't breathe no short of breath. He couldn't get up and he felt his equilibrium was off. The symptoms did not last too long. They called the ambulance, but patient's symptoms started getting better. He still went to ER, and arrived on Saturday video conference specialist 05/12/2010 for at around 1:30 AM. It was reported he has some vertiginous symptoms, left arm numbness. He had computed tomography scan of the head, CT of head and neck, which were reported as normal. He was sent home. That morning on Saturday he took off work. On Saturday he went to work but felt nauseous and felt slightly wheezy. On Saturday, (yesterday) he went to see his family doctor, his blood pressure was noted to be high. He was started on blood pressure medication. He went home and symptoms got worse, not feeling right. At around 5 PM he felt he was dragging his right leg while walking and right arm felt heavy. He was bumping into the island in the kitchen. He was also having some hesitancy with the wording, as he has to think what he wanted to say. There was no facial droop or any visual symptoms. As his symptoms persisted, he came to the hospital early this morning on Saturday at 1:11 AM. Vital signs on arrival blood pressure 166/99, then 175/105. Pulse rate 74, temperature 97.8. CBC, PT/PTT normal, sodium 136 potassium is normal. Renal, hepatic panel is normal troponin negative, CK normal. EKG showed sinus rhythm. Chest x-ray showed borderline cardiomegaly. Mildly prominent bronchovascular markings, questionable mild pulmonary vascular congestion. CT head revealed a very subtle focal zones with decreased attenuation/acute infarction suspected in the left parietal fisher radiata. I personally reviewed CT head and do not notice any definitive abnormality. Current medications include lisinopril 10 mg and loratadine. Patient does not take any antiplatelet medication at home. The blood pressure medication was just started yesterday. Patient says that now he is talking better. He continues to have weakness and slow movement of the right side he can move his right leg, but still dragging it. Patient says that he chews tobacco about 1 day. He quit smoking 15-20 years ago. Denies diabetes. He has hypertension. He does drink couple beers per night. No melena or any drug use. Review of Systems All pertinent positive and negatives mentioned in HPI. Otherwise negative. Past Medical History Past Medical History: Hypertension History of Any Multi-Drug Resistant Organisms: None Reported Past Surgical History: No Surgical Hx Reported Past Psychological History: No Psychological Hx Reported Smoking Status: Former smoker Past Alcohol Use History: Daily Past Drug Use History: None Reported Medications and Allergies Home Medications Medication Instructions Recorded Confirmed Type Loratadine 10 mg PO DAILY 05/16/24 05/16/24 History lisinopriL [Zestril] 10 mg PO DAILY 05/16/24 05/16/24 History Allergies Allergy/AdvReac Type Severity Reaction Status Date / Time No Known Allergies Allergy Verified 05/16/24 08:43 Physical Examination - Vital Signs Vital Signs: Vital Signs Temp Pulse Resp BP Pulse Ox 05/16/24 10:20 80 16 170/98 94 L 05/16/24 06:04 74 18 171/102 95 05/16/24 04:00 82 18 172/90 97 05/16/24 03:00 71 18 170/103 95 05/16/24 02:30 71 18 175/105 96 05/16/24 01:30 80 18 166/99 95 05/16/24 01:13 97.8 F 74 18 98 Intake and Output 05/15/24 05/16/24 05/16/24 22:59 06:59 14:59 Other: Weight 102.058 kg Patient is a middle aged male, very pleasant, in no acute distress. Patient is alert awake oriented to time place and person. Speech and language functions are normal. Patient can name and repeat very well. No aphasia or dysarthria. Attention, concentration and fund of knowledge is adequate. No hesitancy with speech at this time. On cranial nerve examination, pupils are equal, round and reacting to light, visual larios are full on confrontation, with no neglect on double simultaneous stimulation. Extraocular muscles are intact with no nystagmus. Face is symmetric, tongue protrudes to the midline. Palatal elevation and sensation normal, hearing and shoulder shrug normal, facial sensation normal. On muscle strength testing, there is mild right pronator drift, and the strength is normal in the left arm and left leg. On the right side, deltoid 4, biceps 4, triceps 4, usability specialist 4. Hip flexion 4, plantar flexion 4, ankle dorsiflexion 4. Deep tendon reflexes are symmetric 1 at the biceps, 2 at the knees and plantar is upgoing on the right, down on the left. Sensory to touch is equal with no neglect on double simultaneous stimulation. Cerebellar function showed mild ataxia for czoawd-dt-fbgd testing only on the right side, not on the left. No ataxia for lydu-ee-[id number] testing on either side. Tone and bulk of muscles normal. Gait deferred.. On general examination, there is no carotid bruit or murmur, S1-S2 audible. Chest is clear on consultation. Abdomen is soft nontender. No organomegaly, bowel sounds present. Peripheral pulses are present. No peripheral edema. Results - Laboratory Findings CBC and BMP: 05/16/24 01:30 05/16/24 01:30 Abnormal Lab Findings: Abnormal Labs 05/16/24 01:30 Sodium 136 L Chloride 109 H Glucose 108 H Assessment and Plan Assessment: * Acute ischemic stroke with right hemiparesis. * Rule out left MCA occlusion. * Hypertension * Chews tobacco Plan: * MRI of the brain without contrast, evaluate for acute CVA * MRA of the brain, rule out left MCA occlusion. * 2-D echo with bubble study to rule out PFO * CTA head and neck showed: Probable there is occlusion of the left MCA bifurcation. Recommend confirmation with 3-D reformats. Otherwise no large vessel occlusion, significant stenosis or aneurysm. CTA of the neck is reported as normal. * Fasting a.m. lipid panel * Hemoglobin A1c * Permissive hypertension for next 24-48 hours * Start antiplatelet medication. Patient to be given aspirin 324 mg 1 dose than 81 g daily. Patient will be given a loading dose of Plavix 150 mg 1 dose and then 75 mg daily from tomorrow. Patient probably may need DAPT for 21 days. * Neuro checks every 2 hours. * Telemetry monitoring rule out any arrhythmia * PT, OT, speech therapy * Recommended abstinence from chewing tobacco. * DVT prophylaxis: Heparin 5000 units subcu every 8 hours * Neurology will continue to follow. Thank you for the consult.
--- NOTE | 2024-05-16 13:46 | P.HPIM ---
History of Present Illness H&P Date: 05/16/24 Patient is a 53-year-old male with no known past medical history presented to the emergency department with numbness and weakness on the right side of his body. He states that on Friday 05/11 he woke up on the floor after falling out of bed and came to the emergency department by EMS early Saturday 05/12 where he had a CT performed here which revealed no acute intracranial hemorrhage, midline shift, or mass effect. His blood pressure was noted to be elevated at this time. He endorses improvement of symptoms over the next day but by Saturday night 05/14 he started dropping items while holding them. Saturday morning he began having difficulty walking as he felt like he had to concentrate on using his muscles on the right side. He subsequently went to his primary care provider where they noted his blood pressure to be elevated again and started him on lisinopril 10 mg. Later Saturday evening he continued to have difficulty walking and endorses slight changes to his speech reported by his kids but denies slurring of his words. He denied facial droop or visual disturbances. Repeat CT performed on 05/15 showed very subtle focal zones with decreased attenuation/acute infarction suspected in the left parietal fisher radiata; patient was not a candidate for TNK due to symptoms persisting for longer than 72 hours. He denies knowing about his hypertension previous to his PCP appointm ent Tuesday 05/15. He denied chest pain, shortness of breath, palpitations, abdominal pain. Brain CT: Very subtle focal zones with decreased attenuation/acute infarction suspected in the left parietal fisher radiata. CT angio: Likely occlusion of the left MCA bifurcation. Chest x-ray: Borderline cardiomegaly, mildly prominent bronchovascular markings, question mild pulmonary vascular congestion. EKG showed sinus rhythm. WBC 6.9, hemoglobin 14.9, sodium 136, potassium 4.2, creatinine 0.75, troponin <0.012. Urine toxicology was negative. Afebrile, hypertensive systolic in the [id number], saturating well on room air. ED documentation reviewed. Review of systems: Pertinent positives and negatives as discussed in HPI, a complete review of systems was performed and all other systems are negative. Family history: Both parents-hypertension and diabetes mellitus Social history: Tobacco: Chew tobacco Alcohol: Daily Recreational drugs: Denies Travel: Denies Physical examination: Vital signs are reviewed. General: No acute distress. AOx4. HEENT: Head exam is unremarkable. EOMI bilaterally. ACs patent. Nares patent. Lungs: Bilateral breath sounds present; no rhonchi, wheezes, or rales. Heart: Rate and rhythm are regular. S1-S2 present. No murmur/rub/gallops. Abdomen: Soft, nontender, nondistended. Bowel sounds present. Extremities: No edema present. Symmetric movement. Right sided extremities 4/5 strength, left-sided extremities 5/5 strength. 1+ biceps and triceps reflexes on the right; 2+ reflexes on the left. Gait deferred. Psych: Normal affect and mood. Cooperative. Assessment/Plan: Acute ischemic stroke Obtain MRI brainrule out left MCA occlusion Neurology consulted: Fasting morning lipid panel, hemoglobin A1c permissive hypertension for the next 24-48 hours, start antiplatelets Obtain echo with bubble study to rule out PFO Hypertension Continue lisinopril; okay to resume since symptom onset >48 hours Obtain fasting lipid panel and hemoglobin A1c in the morning. DVT prophylaxis: Heparin Chronic conditions: Newly diagnosed hypertension The patient is admitted with an anticipated less than 2 midnight stay for evaluation of right-sided weakness CODE STATUS: Full code Discussed with: Patient Anticipated discharge place: Home Attestation I have seen and examined this patient with my resident , discussed the same with the resident/DASHAWN, and agree with the dictator's assessment and plan as written Dr. Cheikh dumont Past Medical History Past Medical History: Hypertension History of Any Multi-Drug Resistant Organisms: None Reported Past Surgical History: No Surgical Hx Reported Past Psychological History: No Psychological Hx Reported Smoking Status: Former smoker Past Alcohol Use History: Daily Past Drug Use History: None Reported Medications and Allergies Home Medications Medication Instructions Recorded Confirmed Type Loratadine 10 mg PO DAILY 05/16/24 05/16/24 History lisinopriL [Zestril] 10 mg PO DAILY 05/16/24 05/16/24 History Allergies Allergy/AdvReac Type Severity Reaction Status Date / Time No Known Allergies Allergy Verified 05/16/24 08:43 Physical Exam Vitals: Vital Signs Temp Pulse Resp BP Pulse Ox 05/16/24 06:04 74 18 171/102 95 05/16/24 04:00 82 18 172/90 97 05/16/24 03:00 71 18 170/103 95 05/16/24 02:30 71 18 175/105 96 05/16/24 01:30 80 18 166/99 95 05/16/24 01:13 97.8 F 74 18 98 Intake and Output 05/15/24 05/15/24 05/16/24 14:59 22:59 06:59 Other: Weight 102.058 kg Results CBC & Chem 7: 05/18/24 05:52 05/18/24 05:42 Labs: Abnormal Lab Results - Last 24 Hours (Table) 05/16/24 Range/Units 01:30 Sodium 136 L (137-145) mmol/L Chloride 109 H (98-107) mmol/L Glucose 108 H (74-99) mg/dL
[2024-05-16] MEDS: hydrALAZINE HCL 20 MG/ML 1 ML VIAL IVP PRN (15:36)
[2024-05-16] MEDS: HEPARIN SODIUM,PORCINE 5,000 UNIT/ML 1 ML VIAL SQ SCH (20:11)
[2024-05-17] MEDS: ASPIRIN 81 MG PO SCH (08:20)
[2024-05-17] MEDS: CLOPIDOGREL 75 MG TAB PO SCH (08:20)
[2024-05-17] MEDS ORDERED: LORATADINE 10 MG TAB PO SCH (09:00)
--- NOTE | 2024-05-17 11:52 | CA ---
Transthoracic Echo Report Name: Hector Samuels Age: 53 Gender: M : 1970 Exam Date: 05/16/2024 12:27 Exam Location: [facility] Ht (in): 67 Wt (lb): 225 Ordering Physician: Cheikh Ellis MD Attending/Referring Phys: [employer] Mechanic Alyce Carrillo RDCS Procedure CPT: Indications: CVA Cardiac Hx: Technical Quality: Fair Contrast 1: Agitated Saline Total Dose (mL): 10 Contrast 2: Total Dose (mL): MEASUREMENTS (Male / Female) Normal Values 2D ECHO LV Diastolic Diameter PLAX 2.9 cm 4.2 - 5.9 / 3.9 - 5.3 cm LV Systolic Diameter PLAX 1.8 cm IVS Diastolic Thickness 1.5 cm 0.6 - 1.0 / 0.6 - 0.9 cm LVPW Diastolic Thickness 1.5 cm 0.6 - 1.0 / 0.6 - 0.9 cm LV Relative Wall Thickness 1.0 RV Internal Dim ED PLAX 3.7 cm LA Volume 52.9 cm??? 18 - 58 / 22 - 52 cm??? LA Volume Index 23.7 cm???/m??? 16 - 28 cm???/m??? M-MODE Aortic Root Diameter MM 3.7 cm LA Systolic Diameter MM 4.6 cm LA Ao Ratio MM 1.2 AV Cusp Separation MM 2.1 cm DOPPLER AV Peak Velocity 141.8 cm/s AV Peak Gradient 8.0 mmHg AV Mean Velocity 101.0 cm/s AV Mean Gradient 4.7 mmHg AV Velocity Time Integral 25.8 cm LVOT Peak Velocity 92.1 cm/s LVOT Peak Gradient 3.4 mmHg LVOT Velocity Time Integral 16.3 cm MV Area PHT 3.7 cm??? Mitral E Point Velocity 70.7 cm/s Mitral A Point Velocity 83.5 cm/s Mitral E to A Ratio 0.8 MV Deceleration Time 205.5 ms FINDINGS Left Ventricle Moderately increased left ventricular wall thickness. Left ventricular cavity size normal. Normal left ventricular systolic function with no obvious regional wall motion abnormalities. Left ventricular ejection fraction is estimated at 55-60 %. Grade 1 diastolic dysfunction. Right Ventricle Mild right ventricular dilatation. Right ventricular systolic pressure within normal limits. Right Atrium Negative agitated saline bubble study for right to left shunt. Normal right atrial size. Left Atrium Normal left atrial size. Mitral Valve Structurally normal mitral valve. Mitral valve thickened. Mild mitral regurgitation. Aortic Valve Trileaflet aortic valve. No aortic valve stenosis or regurgitation. Tricuspid Valve Structurally normal tricuspid valve. Trace tricuspid regurgitation. Pulmonic Valve Structurally normal pulmonic valve. Pericardium No pericardial effusion. Aorta Normal size aortic root and proximal ascending aorta. CONCLUSIONS Diagnosis: Cerebrovascular accident, evaluate for intracardiac mass left ventricular hypertrophy with preserved systolic function Negative bubble study Previewed by: Dr. Jaime Gunter MD (Electronically Signed) Final Date: 17 May 2024 11:52
[2024-05-17 12:42] LABS: LDL Cholesterol,Calculated 98.1 mg/dL (0.0-131.0)
--- NOTE | 2024-05-17 12:47 | P.PN ---
Subjective Progress Note Date: 05/17/24 This is a telemedicine neurology follow-up performed today on 05/17/2024, with Ligia Cano RN. Patient was seen for a follow-up. Patient's significant other was also present today. Patient has got worse overnight. He cannot lift his right arm. He can barely walk in no require assistance, has to hang on to someone to walk. He was walking by himself in the house on Saturday. Patient's speech is fine, vision is fine, although patient's fianc believes that his speech is slightly slow. Patient suffered from couple falls in the ER yesterday as well. Did not hit his head. Objective - Vital Signs Vital signs: Vital Signs Temp 97.1 F L 05/17/24 08:00 Pulse 88 05/17/24 08:00 Resp 17 05/17/24 08:00 BP 172/88 05/17/24 08:00 Pulse Ox 99 05/17/24 08:00 FiO2 Intake & Output 05/16/24 05/17/24 05/17/24 18:59 06:59 18:59 Intake Total 20 Balance 20 Weight 102.058 kg 99.1 kg Intake: IV 20 Invasive Line 1 20 Other: Voiding Method Urinal Urinal - Exam On examination patient's mental status, speech and language functions are normal. Attention, concentration, fund of knowledge is adequate. Patient's significant other believes that his speech is slightly delayed. On cranial nerve testing, patient has right facial droop, which is definitely new. Tongue protrudes slightly to the right. Pupils are equal, round and reacting. Extraocular muscles are intact with no nystagmus. Patient's right palpebral fissure is slightly larger, but is baseline for patient, confirmed by his significant other. Shoulder shrug appears normal. On muscle strength testing the strength is normal in the left arm and left leg. On the right side, deltoid 2, biceps 3 to 3-, triceps 3, generator technician 3 hip flexion 4, plantar flexion 4, ankle dorsiflexion 3. Sensory touch is equal. Cannot perform cerebellar functions for thpwpm-fq-sakf or cyqp-ku-zzzl testing. Patient's blood pressure at this moment is 184/109. - Labs CBC & Chem 7: 05/16/24 01:30 05/16/24 01:30 Assessment and Plan Assessment: * Acute ischemic stroke with right hemiparesis. Patient's stroke symptoms have gotten worse overnight. * No definitive evidence of left MCA occlusion, per MRA brain * Hypertension * Chews tobacco Plan: * MRI of the brain without contrast, revealed acute/subacute CVA involving the left basal ganglia/fisher radiata. Nonspecific white matter changes, likely secondary to small vessel ischemic disease. I personally reviewed MRI, agree with the findings. * MRA of the brain, revealed no evidence of aneurysm or significant stenosis. The left MCA appears patent in the field of view. I personally reviewed MRA, agree with the findings. * 2-D echo revealed moderately increased left ventricular wall thickness. No obvious regional wall motion abnormalities. LVEF is 55-60% with grade 1 diastolic dysfunction. Normal left atrial size. Negative agitated saline bubble study for cdxok-gr-byjg shunt. Mild MR. * CTA head and neck showed: Probable there is occlusion of the left MCA bifurcation. Recommend confirmation with 3-D reformats. Otherwise no large vessel occlusion, significant stenosis or aneurysm. CTA of the neck is reported as normal. * Fasting a.m. lipid panel pending. We will start Lipitor 80 mg daily including now. * Hemoglobin A1c 5.5. * Patient's clinical condition has deteriorated with worsening of right hemiparesis. Patient recommended bedrest, with head and 30 elevated. * Permissive hypertension for next 24 hours. Do not treat unless blood pressure > 220/120. Start normal saline at 50 mL per hour for 24 hours. * Start has received aspirin 324 mg 1 dose than 81 mg daily. Patient also has received a loading dose of Plavix 150 mg 1 dose and then 75 mg daily. As his symptoms have got worse, we will give an extra loading dose of Plavix 150 mg. * Neuro checks every 2 hours. * Telemetry monitoring rule out any arrhythmia * PT, OT, speech therapy * Recommended abstinence from chewing tobacco. * DVT prophylaxis: Heparin 5000 units subcu every 8 hours * Dr. Robby Mcduffie to resume neurology service from the morning.
[2024-05-17] MEDS: ATORVASTATIN 80 MG TAB PO STA (13:01)
[2024-05-17] MEDS: SODIUM CHLORIDE 0.9% 1,000 ML IV SCH (13:01)
[2024-05-17] MEDS: CLOPIDOGREL 75 MG TAB PO STA (13:01)
--- NOTE | 2024-05-17 13:40 | P.PN ---
Subjective Progress Note Date: 05/17/24 Patient is a 53-year-old male with no known past medical history presented to the emergency department with numbness and weakness on the right side of his body. He states that on Friday 05/11 he woke up on the floor after falling out of bed and came to the emergency department by EMS early Saturday 05/12 where he had a CT performed here which revealed no acute intracranial hemorrhage, midline shift, or mass effect. His blood pressure was noted to be elevated at this time. He endorses improvement of symptoms over the next day but by Saturday night 05/14 he started dropping items while holding them. Saturday morning he began having difficulty walking as he felt like he had to concentrate on using h is muscles on the right side. He subsequently went to his primary care provider where they noted his blood pressure to be elevated again and started him on lisinopril 10 mg. Later Saturday evening he continued to have difficulty walking and endorses slight changes to his speech reported by his kids but denies slurring of his words. He denied facial droop or visual disturbances. Repeat CT performed on 05/15 showed very subtle focal zones with decreased attenuation/acute infarction suspected in the left parietal fisher radiata; patient was not a candidate for TNK due to symptoms persisting for longer than 72 hours. He denies knowing about his hypertension previous to his PCP appointment Tuesday 05/15. He denied chest pain, shortness of breath, palpitations, abdominal pain. Brain CT: Very subtle focal zones with decreased attenuation/acute infarction suspected in the left parietal fisher radiata. CT angio: Likely occlusion of the left MCA bifurcation. Chest x-ray: Borderline cardiomegaly, mildly prominent bronchovascular markings, question mild pulmonary vascular congestion. EKG showed sinus rhythm. WBC 6.9, hemoglobin 14.9, sodium 136, potassium 4.2, creatinine 0.75, troponin <0.012. Urine toxicology was negative. Afebrile, hypertensive systolic in the [id number], saturating well on room air. 05/17. Patient seen and examined. States his right-sided weakness has worsened overnight. Neurology eval the patient recommended keeping permissive hyper tension, recommended not treating any blood pressure unless there is more than 220 systolic and diastolic more than 120. REVIEW OF SYSTEMS: CONSTITUTIONAL: No fever, no malaise,. CARDIOVASCULAR: No chest pain, no palpitations, no syncope. PULMONARY: No shortness of breath, no cough, GASTROINTESTINAL: No diarrhea, no nausea, no vomiting, no abdominal pain. NEUROLOGICAL: As mentioned above PHYSICAL EXAMINATION: GENERAL: The patient is alert and oriented x3, not in any acute distress. Well developed, well nourished. HEENT: Pupils are round and equally reacting to light. EOMI. No scleral icterus. No conjunctival pallor. Normocephalic, atraumatic. No pharyngeal erythema. No thyromegaly. CARDIOVASCULAR: S1 and S2 present. No murmurs, rubs, or gallops. PULMONARY: Chest is clear to auscultation, no wheezing or crackles. ABDOMEN: Soft, nontender, nondistended, normoactive bowel sounds. No palpable organomegaly. MUSCULOSKELETAL: No joint swelling or deformity. EXTREMITIES: No cyanosis, clubbing, or pedal edema. NEUROLOGICAL: Cranial nerves II to XII intact, muscle strength is 4 x 5 and right side, 5/5 in left side SKIN: No rashes. Assessment and plan Acute ischemic stroke Monitor vital signs Cyclic continue rechecks Monitor CBC Monitor CMP Continue neurochecks MRI of the brain without contrast, revealed acute/subacute CVA involving the left basal ganglia/fisher radiata. Nonspecific white matter changes, likely secondary to small vessel ischemic disease MRA of the brain, revealed no evidence of aneurysm or significant stenosis. The left MCA appears patent in the field of view Continue aspirin, Plavix, Lipitor Neurology following Hypertension Allowing permissive hypertension Labs and medication were reviewed.. Continue same treatment. Continue with symptomatic treatment. Resume home medication. Monitor labs and vitals. DVT and GI prophylaxis. Further recommendations as per clinical course of the patient Dictation was produced using [employer] dictation software. please excuse any grammatical, word or spelling errors. Objective - Vital Signs Vital signs: Vital Signs Temp 98.3 F 05/17/24 12:00 Pulse 87 05/17/24 12:00 Resp 18 05/17/24 12:00 BP 186/109 05/17/24 12:00 Pulse Ox 96 05/17/24 12:00 FiO2 Intake & Output 05/16/24 05/17/24 05/17/24 18:59 06:59 18:59 Intake Total 20 Balance 20 Weight 102.058 kg 99.1 kg Intake: IV 20 Invasive Line 1 20 Other: Voiding Method Urinal Urinal - Labs CBC & Chem 7: 05/16/24 01:30 05/16/24 01:30
[2024-05-17] MEDS: HEPARIN SODIUM,PORCINE 5,000 UNIT/ML 1 ML VIAL SQ SCH (16:17)
[2024-05-17] MEDS: MELATONIN 5 MG TABLET PO SCH (20:23)
[2024-05-17 21:57] LABS: Glucose,Whole Blood 100 mg/dL (70-110)
[2024-05-18] MEDS: ACETAMINOPHEN TAB 325 MG TAB PO PRN (05:56)
[2024-05-18 06:11] LABS: Basophils % (A) 0 %; Eosinophils # (A) 0.1 k/uL (0-0.7); Eosinophils % (A) 2 %; HCT 46.4 % (39.0-53.0); HGB 15.1 gm/dL (13.0-17.5); Lymphocytes # (A) 1.7 k/uL (1.0-4.8); Lymphocytes % (A) 23 %; MCH 27.8 pg (25.0-35.0); MCHC 32.6 g/dL (31.0-37.0); MCV 85.3 fL (80.0-100.0); Mean Platelet Volume 7.5; Monocytes # (A) 0.4 k/uL (0-1.0); Monocytes % (A) 5 %; Neutrophils # (A) 5.1 k/uL (1.3-7.7); Neutrophils % (A) 69 %; Platelet Count 266 k/uL (150-450); RBC 5.44 m/uL (4.30-5.90); RDW 13.2 % (11.5-15.5); WBC 7.4 k/uL (3.8-10.6)
[2024-05-18 06:36] LABS: ALT 38 U/L (4-49); AST 48 U/L (17-59); African American GFR (CKD) >90 (>60 ml/min/1.73 sqM); Albumin 4.7 g/dL (3.5-5.0); Alkaline Phosphatase 112 U/L (38-126); Anion Gap 8 mmol/L; Blood Urea Nitrogen 15 mg/dL (9-20); Carbon Dioxide 20 mmol/L (22-30); Chloride 110 mmol/L (98-107); Glucose 109 mg/dL (74-99); Non-African American GFR(CKD) >90 (>60 ml/min/1.73 sqM); Potassium 4.5 mmol/L (3.5-5.1); Sodium 138 mmol/L (137-145); Total Bilirubin 1.3 mg/dL (0.2-1.3); Total Protein 7.5 g/dL (6.3-8.2)
--- NOTE | 2024-05-18 13:11 | P.PN ---
Subjective Progress Note Date: 05/18/24 Patient is a 53-year-old male with no known past medical history presented to the emergency department with numbness and weakness on the right side of his body. He states that on Friday 05/11 he woke up on the floor after falling out of bed and came to the emergency department by EMS early Saturday 05/12 where he had a CT performed here which revealed no acute intracranial hemorrhage, midline shift, or mass effect. His blood pressure was noted to be elevated at this time. He endorses improvement of symptoms over the next day but by Saturday night 05/14 he started dropping items while holding them. Saturday morning he began having difficulty walking as he felt like he had to concentrate on using his muscles on the right side. He subsequently went to his primary care provider where they noted his blood pressure to be elevated again and started him on lisinopril 10 mg. Later Saturday evening he continued to have difficulty walking and endorses slight changes to his speech reported by his kids but denies slurring of his words. He denied facial droop or visual disturbances. Repeat CT performed on 05/15 showed very subtle focal zones with decreased attenuation/acute infarction suspected in the left parietal fisher radiata; patient was not a candidate for TNK due to symptoms persisting for longer than 72 hours. He denies knowing about his hypertension previous to his PCP appointment Tuesday 05/15. He denied chest pain, shortness of breath, palpitations, abdominal pain. Brain CT: Very subtle focal zones with decreased attenuation/acute infarction suspected in the left parietal fisher radiata. CT angio: Likely occlusion of the left MCA bifurcation. Chest x-ray: Borderline cardiomegaly, mildly prominent bronchovascular markings, question mild pulmonary vascular congestion. EKG showed sinus rhythm. WBC 6.9, hemoglobin 14.9, sodium 136, potassium 4.2, creatinine 0.75, troponin <0.012. Urine toxicology was negative. Afebrile, hypertensive systolic in the [id number], saturating well on room air. 05/17. Patient seen and examined. States his right-sided weakness has worsened overnight. Neurology evaluated the patient and recommended keeping permissive hypertension, recommended not treating any blood pressure unless there is more than 220 systolic and diastolic more than 120. 05/18. Patient seen and examined. Family is at bedside. Labs today unremarkable. Patient has no new complaints today. Review of systems: Pertinent positives and negatives as discussed in HPI, a complete review of systems was performed and all other systems are negative. Physical examination: Vital signs are reviewed. General: No acute distress. AOx4. HEENT: Right facial paralysis with tongue deviation to the right. EOMI bilaterally. ACs patent. Nares patent. Lungs: Bilateral breath sounds present; no rhonchi, wheezes, or rales. Heart: Rate and rhythm are regular. S1-S2 present. No murmur/rub/gallops. Abdomen: Soft, nontender, nondistended. Bowel sounds present. Extremities: No edema present. Right-sided extremities 1/5 strength; a few hours later right upper extremity 1/5 strength, right lower extremity 3/5 strength. Left-sided extremities 5/5 strength. Gait deferred. Psych: Normal affect and mood. Cooperative. Assessment/Plan: Acute ischemic stroke MRI brain: Acute/subacute CVA involving the left basal ganglia/fisher radiata, nonspecific white matter changeslikely secondary to small vessel ischemic disease. MRA brain: No evidence of aneurysm or significant stenosis, left MCA appears patent in the [id number] Neuro checks every 2 hours Continue aspirin, Plavix, Lipitor Neurology following Hypertension Allowing permissive hypertension DVT prophylaxis: Heparin Attestation I have seen and examined this patient with my resident , discussed the same with the resident/DASHAWN, and agree with the dictator's assessment and plan as written GENERAL: The patient is alert and oriented x3, not in any acute distress. Well developed, well nourished. HEENT: Pupils are round and equally reacting to light. EOMI. No scleral icterus. No conjunctival pallor. Normocephalic, atraumatic. No pharyngeal erythema. No thyromegaly. CARDIOVASCULAR: S1 and S2 present. No murmurs, rubs, or gallops. PULMONARY: Chest is clear to auscultation, no wheezing or crackles. ABDOMEN: Soft, nontender, nondistended, normoactive bowel sounds. No palpable organomegaly. MUSCULOSKELETAL: No joint swelling or deformity. EXTREMITIES: No cyanosis, clubbing, or pedal edema. NEUROLOGICAL: Muscle strength is 2/5 in right upper extremity, 3/5 in right lower extremity and 5/5 in left side SKIN: No rashes. Dr. Cheikh dumont Objective - Vital Signs Vital signs: Vital Signs Temp 98.6 F 05/18/24 04:00 Pulse 74 05/18/24 04:00 Resp 18 05/18/24 04:00 BP 170/101 05/18/24 04:00 Pulse Ox 95 05/18/24 04:00 FiO2 Intake & Output 05/17/24 05/17/24 05/18/24 06:59 18:59 06:59 Intake Total 20 50 300 Output Total 900 Balance 20 50 -600 Weight 99.1 kg 101 kg Intake: IV 20 50 300 Invasive Line 1 20 Sodium Chloride 0.9% 1, 50 300 000 ml @ 50 mls/hr IV . Q20H [facility] Rx#:[id number] Output: Urine 900 Other: Voiding Method Urinal Toilet External Catheter Urinal # Voids 1 1 - Labs CBC & Chem 7: 05/18/24 05:52 05/18/24 05:42 Labs: Abnormal Lab Results - Last 24 Hours (Table) 05/18/24 Range/Units 05:42 Chloride 110 H (98-107) mmol/L Carbon Dioxide 20 L (22-30) mmol/L Glucose 109 H (74-99) mg/dL
--- NOTE | 2024-05-18 13:17 | P.CON ---
Consult Note - . Consult date: 05/18/24 Assessment/Plan:: Mr. Samuels is a 53 y/o M with acute right sided weakness likely due to an acute/subacute left basal ganglia ischemic infarction. # Right hemiparesis due to acute left basal ganglia ischemic infarction -PT/OT/[employer] # Uncontrolled HTN -IM management Discharge plan: IPR at [facility] pending insurance authorization and medical stability. Yg Roe D.O. History of Present Illness - History of Present Illness Initial Comments: Mr. Samuels presented to [facility] on 05/16/2024 with numbness and weakness on the right side of his body. He states that on Friday 05/11 he woke up on the floor after falling out of bed and came to the emergency department by EMS early Saturday 05/12 where he had a CT head performed here which revealed no acute intracranial hemorrhage, midline shift, or mass effect. His blood pressure was noted to be elevated at this time. He endorses improvement of symptoms over the next day but by Saturday night, 05/13, he started dropping items while holding them. The morning of 05/15 he began having difficulty walking as he felt like he had to concentrate on using his muscles on the right side. He subsequently went to his primary care provider where they noted his blood pressure to be elevated again and started him on lisinopril 10 mg. Later 05/15 evening he continued to have difficulty walking and endorses slight changes to his speech reported by his kids but denies slurring of his words. Repeat CT head performed on 05/15 showed very subtle focal zones with decreased attenuation/acute infarction suspected in the left parietal fisher radiata; patient was not a candidate for TNK due to symptoms persisting for longer than [address]: Very subtle focal zones with decreased attenuation/acute infarction suspected in the left parietal fisher radiata. CT angio: Likely occlusion of the left MCA bifurcation. MRI Brain: Acute/subacute left basal ganglia ischemic infarction. MRA brain: no significant changes. He lives with his fiance and 2 children, 18 and 15 years old, in a mobile home with 5 [address]. He was independent with basic and advanced ADLs [employer]. He works a labor intense job. Allergies/Adverse Reactions: Allergies No Known Allergies Allergy (Verified 05/16/24 08:43) Home Medications: Ambulatory Orders Loratadine 10 mg PO DAILY 05/16/24 lisinopriL [Zestril] 10 mg PO DAILY 05/16/24 Exam - Exam Vital Signs: Vital Signs (72 hours) 05/17/24 05/17/24 05/17/24 00:00 02:00 03:48 Temperature 98.4 F 98.1 F Pulse Rate Pulse Rate [ 87 87 91 Pulse Oximetery ] Respiratory 17 17 17 Rate Blood Pressure Blood Pressure 164/98 176/96 [Left Arm] O2 Sat by Pulse 95 96 Oximetry 05/17/24 05/17/24 05/17/24 08:00 12:00 16:00 Temperature 97.1 F L 98.3 F 98.2 F Pulse Rate Pulse Rate [ 88 87 88 Pulse Oximetery ] Respiratory 17 18 16 Rate Blood Pressure Blood Pressure 172/88 186/109 142/83 [Left Arm] O2 Sat by Pulse 99 96 97 Oximetry 05/17/24 05/17/24 05/18/24 20:00 23:29 01:57 Temperature 98.1 F 98.2 F Pulse Rate Pulse Rate [ 80 73 73 Pulse Oximetery ] Respiratory 18 18 18 Rate Blood Pressure Blood Pressure 155/98 148/101 [Left Arm] O2 Sat by Pulse 97 98 Oximetry 05/18/24 05/18/24 05/18/24 04:00 08:10 11:57 Temperature 98.6 F 98.2 F 98.1 F Pulse Rate Pulse Rate [ 74 86 71 Pulse Oximetery ] Respiratory 18 16 16 Rate Blood Pressure Blood Pressure 170/101 160/92 158/98 [Left Arm] O2 Sat by Pulse 95 95 96 Oximetry Comment: General: No acute distress. A&Ox4. Mother and father at bedside. HEENT: +Right facial droop, mild. Lungs: NLB on RA. Heart: No cardiac distress. No LE edema. No calf tenderness bilaterally. Abdomen: Soft, nontender, nondistended. MSK: Functional ROM in LUE and LLE, right hemiparesis, worse in the RUE than the RLE Neuro: CN II-XII intact. +Right Babinski. +Left De La Fuente's. MMT: 0/5 strength throughout RUE, 2/5 right HF, 0/5 right ankle DF, PF and EHL, 5/5 strength throughout LUE and LLE. Psych: Normal affect and mood. Cooperative.
--- NOTE | 2024-05-18 15:44 | P.PN ---
Subjective Progress Note Date: 05/18/24 I am seeing the patient for the first time during this admission. Please refer to Dr. Ernandez's note for further details. According the patient he echo and possibly had underlying hypertension in the past that he is not aware of but it was felt during this admission he has hypertension. He has acute ischemic stroke and he has significant weakness over the right side with some weakness over the right face. This admission he stated that he was not on any medication and he did not have any medical problems that he is aware of but was not following up with primary care physician on a yearly basis. He just chews tobacco. He will drink alcohol socially. Denies any illicit drug use. Regarding strength leal he feels about the same today compared to yesterday. He stated yesterday he had significant weakness that was worse compared to couple days ago. Denies any other new neurological issues today. Objective - Vital Signs Vital signs: Vital Signs Temp 98.1 F 05/18/24 11:57 Pulse 71 05/18/24 11:57 Resp 16 05/18/24 11:57 BP 158/98 05/18/24 11:57 Pulse Ox 96 05/18/24 11:57 FiO2 Intake & Output 05/17/24 05/18/24 05/18/24 18:59 06:59 18:59 Intake Total 50 300 Output Total 900 Balance 50 -600 Weight 101 kg Intake: IV 50 300 Sodium Chloride 0.9% 1, 50 300 000 ml @ 50 mls/hr IV . Q20H [facility] Rx#:[id number] Output: Urine 900 Other: Voiding Method Toilet External Catheter Urinal # Voids 1 1 - Exam GENERAL: The patient is lying in bed and is not in acute distress. NEUROLOGICAL: Higher mental function: The patient is awake, alert, oriented to self, place and time. Patient is following commands. No aphasia and no neglect. Cranial nerves: The pupils are round, equal and reactive to light and accommodation. Visual larios are full to confrontation throughout. Extraocular movement is intact no nystagmus is noted. Facial sensation is normal to touch throughout. The facial strength is mild right lower facial weakness. Hearing is normal bilaterally to hand rub. Tongue is midline and moved [id number] without any difficulty. No dysarthria is noted. Shoulder shrug is normal bilaterally. Motor: The strength is right upper extremity is significant weakness over the right side. Right elbow felxion/extension is 2/5. Right hand flexion and extension is 1-2 (more of 1 but has antigravity of 5th digit). Right proximal is 1-2 and foot flexion/extension is 1-2. Decrease tone over the right side. Left side is 5/5. Cerebellum: Normal finger to nose on the left. Sensation: Sensation is normal to touch throughout. - Labs CBC & Chem 7: 05/18/24 05:52 05/18/24 05:42 Labs: Abnormal Lab Results - Last 24 Hours (Table) 05/18/24 Range/Units 05:42 Chloride 110 H (98-107) mmol/L Carbon Dioxide 20 L (22-30) mmol/L Glucose 109 H (74-99) mg/dL Assessment and Plan Assessment: * Acute ischemic stroke with significant right hemiparesis---today patient and family feel slightly better today compared to yesterday. I think he likely had evolution of symptoms. His stroke is likely chronic small vessel disease due to risk factors (HTN tobacco use and obesity). * No definitive evidence of left MCA occlusion, per MRA brain * Hypertension * Chews tobacco Plan: * MRI of the brain without contrast, revealed acute/subacute CVA involving the left basal ganglia/fisher radiata. Nonspecific white matter changes, likely secondary to small vessel ischemic disease. I personally reviewed MRI, agree with the findings. * MRA of the brain, revealed no evidence of aneurysm or significant stenosis. The left MCA appears patent in the field of view. I personally reviewed MRA, agree with the findings. * 2-D echo revealed moderately increased left ventricular wall thickness. No obvious regional wall motion abnormalities. LVEF is 55-60% with grade 1 diastolic dysfunction. Normal left atrial size. Negative agitated saline bubble study for [id number] shunt. Mild MR. * CTA head and neck showed: Probable there is occlusion of the left MCA bifurcation. Recommend confirmation with 3-D reformats. Otherwise no large vessel occlusion, significant stenosis or aneurysm. CTA of the neck is reported as normal. * Fasting a.m. lipid panel: Triglyceride 145, cholesterol 171, LDL is 98 and HDL is 43. The LDL goal and stroke is less than 70. I decreased his Lipitor from 80 mg to 40 mg daily. * Hemoglobin A1c 5.5. * Recommend systolic blood pressure 140-160 and by tomorrow normotensive. * Patient is to continue aspirin 81 mg daily, Plavix 75 mg daily. Patient to be on dual antiplatelet for 21 days and after 21 days stop Plavix but continue aspirin indefinitely. Prior to this the patient was not on any antiplatelets. * Neuro checks every 4 hours. * Telemetry monitoring rule out any arrhythmia * Recommend a 30-day event monitor. * PT, OT, speech therapy * Patient will benefit from inpatient rehab from a neurologic perspective. * Recommended abstinence from chewing tobacco. * Upon discharge recommend the patient to follow-up with a neurologist as an outpatient within 2 weeks. * DVT prophylaxis: Heparin 5000 units subcu every 8 hours Plan discussed with the patient, his significant other and family members. Also discussed with primary attending. There is no further neurological workup. Will sign off. Please reconsult if needed. Time with Patient: Less than 30
[2024-05-18] MEDS: ATORVASTATIN 40 MG TAB PO SCH (19:44)
[2024-05-18] MEDS ORDERED: ATORVASTATIN 80 MG TAB PO SCH (21:00)
--- NOTE | 2024-05-19 14:01 | P.PN ---
Subjective Progress Note Date: 05/19/24 Patient is a 53-year-old male with no known past medical history presented to the emergency department with numbness and weakness on the right side of his body. He states that on Friday 05/11 he woke up on the floor after falling out of bed and came to the emergency department by EMS early Saturday 05/12 where he had a CT performed here which revealed no acute intracranial hemorrhage, midline shift, or mass effect. His blood pressure was noted to be elevated at this time. He endorses improvement of symptoms over the next day but by Saturday night 05/14 he started dropping items while holding them. Saturday morning he began having difficulty walking as he felt like he had to concentrate on using his muscles on the right side. He subsequently went to his primary care provider where they noted his blood pressure to be elevated again and started him on lisinopril 10 mg. Later Saturday evening he continued to have difficulty walking and endorses slight changes to his speech reported by his kids but denies slurring of his words. He denied facial droop or visual disturbances. Repeat CT performed on 05/15 showed very subtle focal zones with decreased attenuation/acute infarction suspected in the left parietal fisher radiata; patient was not a candidate for TNK due to symptoms persisting for longer than 72 hours. He denies knowing about his hypertension previous to his PCP appointment Tuesday 05/15. He denied chest pain, shortness of breath, palpitations, abdominal pain. Brain CT: Very subtle focal zones with decreased attenuation/acute infarction suspected in the left parietal fisher radiata. CT angio: Likely occlusion of the left MCA bifurcation. Chest x-ray: Borderline cardiomegaly, mildly prominent bronchovascular markings, question mild pulmonary vascular congestion. EKG showed sinus rhythm. WBC 6.9, hemoglobin 14.9, sodium 136, potassium 4.2, creatinine 0.75, troponin <0.012. Urine toxicology was negative. Afebrile, hypertensive systolic in the [id number], saturating well on room air. 05/17. Patient seen and examined. States his right-sided weakness has worsened overnight. Neurology evaluated the patient and recommended keeping permissive hypertension, recommended not treating any blood pressure unless there is more than 220 systolic and diastolic more than 120. 05/18. Patient seen and examined. Family is at bedside. Labs today unremarkable. Patient has no new complaints today. 05/19. Patient seen and examined. Discussed with neurology, recommend dual antiplatelet for 21 days in the form of aspirin and Plavix followed by aspirin indefinitely. Review of systems: Pertinent positives and negatives as discussed in HPI, a complete review of systems was performed and all other systems are negative. Physical examination: GENERAL: The patient is alert and oriented x3, not in any acute distress. Well developed, well nourished. HEENT: Pupils are round and equally reacting to light. EOMI. No scleral icterus. No conjunctival pallor. Normocephalic, atraumatic. No pharyngeal erythema. No thyromegaly. CARDIOVASCULAR: S1 and S2 present. No murmurs, rubs, or gallops. PULMONARY: Chest is clear to auscultation, no wheezing or crackles. ABDOMEN: Soft, nontender, nondistended, normoactive bowel sounds. No palpable organomegaly. MUSCULOSKELETAL: No joint swelling or deformity. EXTREMITIES: No cyanosis, clubbing, or pedal edema. NEUROLOGICAL: Muscle strength is 2/5 in right upper extremity, 3/5 in right lower extremity and 5/5 in left side SKIN: No rashes. Assessment/Plan: Acute ischemic stroke MRI brain: Acute/subacute CVA involving the left basal ganglia/fisher radiata, nonspecific white matter changeslikely secondary to small vessel ischemic disease. MRA brain: No evidence of aneurysm or significant stenosis, left MCA appears patent in the [id number] Neuro checks every 2 hours Continue aspirin, Plavix, continue dual antiplatelet for 21 days and after 21 days stop Plavix but continue aspirin indefinitely Continue Lipitor Neurology following Recommend acute rehab Physical medicine and rehab consulted, case management consulted for IPR Hypertension Monitor vital signs Resume lisinopril DVT prophylaxis: Heparin Objective - Vital Signs Vital signs: Vital Signs Temp 98.6 F 05/19/24 08:20 Pulse 76 05/19/24 08:20 Resp 19 05/19/24 08:20 BP 149/76 05/19/24 08:20 Pulse Ox 95 05/19/24 08:20 FiO2 Intake & Output 05/18/24 05/19/24 05/19/24 18:59 06:59 18:59 Intake Total 1000 118 Output Total 750 1100 Balance -750 -100 118 Intake: IV 1000 Sodium Chloride 0.9% 1, 1000 000 ml @ 50 mls/hr IV . Q20H [facility] Rx#:[id number] Oral 118 Output: Urine 750 1100 Other: Voiding Method External Catheter External Catheter # Voids 1 - Labs CBC & Chem 7: 05/18/24 05:52 05/18/24 05:42
[2024-05-19] MEDS: lisinopriL 10 MG TAB PO SCH (15:41)
[2024-05-19] MEDS: amLODIPine 5 MG TAB PO SCH (20:28)
[2024-05-20] MEDS: traMADol 50 MG TAB PO PRN (06:37)
[2024-05-20 08:03] VITALS: TEMP 98.5
--- NOTE | 2024-05-20 13:37 | P.DS ---
Providers Date of admission: 05/16/24 04:05 Attending physician: Connor Crews Consults: 05/16/24 04:02 Consult Physician Routine Consulting Provider: Maikol Ernandez Consult Reason/Comments: CVA Do you want consulting provider notified?: Yes, Notify in am 05/18/24 11:33 Consult Physician Routine Consulting Provider: Yg Roe Consult Reason/Comments: acute stroke, evaluation for IPR Do you want consulting provider notified?: Yes Primary care physician: Curt Carter Hospital Course: Discharge Diagnosis: Acute ischemic stroke with right hemiparesis Hypertension Hospital course: Patient is a 53-year-old male with no known past medical history presented to the emergency department with numbness and weakness on the right side of his body. He states that on Friday 05/11 he woke up on the floor after falling out of bed and came to the emergency department by EMS early Saturday 05/12 where he had a CT performed here which revealed no acute intracranial hemorrhage, midline shift, or mass effect. His blood pressure was noted to be elevated at this time. He endorses improvement of symptoms over the next day but by Saturday night 05/14 he started dropping items while holding them. Saturday morning he began having difficulty walking as he felt like he had to concentrate on using his muscles on the right side. He subsequently went to his primary care provider where they noted his blood pressure to be elevated again and started him on lisinopril 10 mg. Later Saturday evening he continued to have difficulty walking and endorses slight changes to his speech reported by his kids but denies slurring of his words. He denied facial droop or visual disturbances. Repeat CT performed on 05/15 showed very subtle focal zones with decreased attenuation/acute infarction suspected in the left parietal fisher radiata; patient was not a candidate for TNK due to symptoms persisting for longer than 72 hours. He denies knowing about his hypertension previous to his PCP appointment Tuesday 05/15. He denied chest pain, shortness of breath, palpitations, abdominal pain. Brain CT: Very subtle focal zones with decreased attenuation/acute infarction suspected in the left parietal fisher radiata. CT angio: Likely occlusion of the left MCA bifurcation. Chest x-ray: Borderline cardiomegaly, mildly prominent bronchovascular markings, question mild pulmonary vascular congestion. EKG showed sinus rhythm. WBC 6.9, hemoglobin 14.9, sodium 136, potassium 4.2, creatinine 0.75, troponin <0.012. Urine toxicology was negative. Afebrile, hypertensive systolic in the [id number], saturating well on room air. 05/17. Patient seen and examined. States his right-sided weakness has worsened overnight. Neurology evaluated the patient and recommended keeping permissive hypertension, recommended not treating any blood pressure unless there is more than 220 systolic and diastolic more than 120. 05/18. Patient seen and examined. Family is at bedside. Labs today unremarkable. Patient has no new complaints today. 05/19. Patient seen and examined. Discussed with neurology, recommend dual antiplatelet for 21 days in the form of aspirin and Plavix followed by aspirin indefinitely. 05/20. Patient seen and examined today. Patient has no new complaints today. Neurology cleared patient for discharge to [facility]. Patient medically stable for discharge to [facility]. Patient is to continue dual antiplatelet therapy for 21 days with Plavix and aspirin. After 21 days of dual antiplatelet therapy patient is to continue with daily aspirin indefinitely. Patient should follow up with outpatient neurology in 1 week. PCP followup in 1-2 days. Physical examination: Vital signs are reviewed. General: No acute distress. AOx4. HEENT: Right facial paralysis with tongue deviation to the right. EOMI bilaterally. ACs patent. Nares patent. Lungs: Bilateral breath sounds present; no rhonchi, wheezes, or rales. Heart: Rate and rhythm are regular. S1-S2 present. No murmur/rub/gallops. Abdomen: Soft, nontender, nondistended. Bowel sounds present. Extremities: No edema present. Right upper extremity 1/5 strength, right lower extremity 3/5 strength. Left-sided extremities 5/5 strength. Gait deferred. Psych: Normal affect and mood. Cooperative. Patient Condition at Discharge: Stable Plan - Discharge Summary Discharge Rx Participant: Yes New Discharge Prescriptions: New Clopidogrel [Plavix] 75 mg PO DAILY 21 Days #21 tab Atorvastatin [Lipitor] 20 mg PO HS 30 Days #30 tablet Pantoprazole [Protonix] 40 mg PO DAILY 30 Days #30 tab Heparin Sodium,Porcine (1 ml) [Heparin Sodium] 5,000 unit SQ Q8HR each Aspirin [Adult Low Dose Aspirin EC] 81 mg PO DAILY 30 Days #30 tab Continue lisinopriL [Zestril] 10 mg PO DAILY Loratadine 10 mg PO DAILY Discharge Medication List Loratadine 10 mg PO DAILY 05/16/24 [History] lisinopriL [Zestril] 10 mg PO DAILY 05/16/24 [History] Aspirin [Adult Low Dose Aspirin EC] 81 mg PO DAILY 30 Days #30 tab 05/20/24 [Rx] Atorvastatin [Lipitor] 20 mg PO HS 30 Days #30 tablet 05/20/24 [Rx] Clopidogrel [Plavix] 75 mg PO DAILY 21 Days #21 tab 05/20/24 [Rx] Heparin Sodium,Porcine (1 ml) [Heparin Sodium] 5,000 unit SQ Q8HR each 05/20/24 [Rx] Pantoprazole [Protonix] 40 mg PO DAILY 30 Days #30 tab 05/20/24 [Rx] Follow up Appointment(s)/Referral(s): Curt Carter MD [Primary Care Provider] - 1-2 days Rahel De MD [REFERRING] - 1 Week Patient Instructions/Handouts: Self Care Measures After a Stroke (DC), Stroke (DC) Activity/Diet/Wound Care/Special Instructions: Diet: Heart Healthy Activity: As tolerated Discharge Disposition: OTHER INSTITUTION NOT DEFINED
[2024-05-20 14:16] VITALS: BP 122/74; PULSE 75; RESP 18
== END 2024-05-20 14:31 | DRG 65 ==
LOC: EC 01:11 → 3SCARD 04:05
PROVIDERS: ADMIT Hospitalist; ATTEND Hospitalist
DX: I63.81 Other cerebral infarction due to occlusion or stenosis of small artery (principal); G81.91 Hemiplegia, unspecified affecting right dominant side; R47.81 Slurred speech; I66.02 Occlusion and stenosis of left middle cerebral artery; R29.703 NIHSS score 3; M21.371 Foot drop, right foot; E66.9 Obesity, unspecified; Z68.34 Body mass index [BMI] 34.0-34.9, adult; F17.220 Nicotine dependence, chewing tobacco, uncomplicated; I10 Essential (primary) hypertension; Z79.899 Other long term (current) drug therapy; Z91.81 History of falling
CPT/HCPCS: 36415; 70450; 70496; 70498; 70544; 70551; 71046; 80053; 80061; 80306; 82550; 83036; 84484; 85025; 85610; 85730; 93005; 93306; 96361; 96374; 99285

== ENCOUNTER 2024-06-17 14:20 | Observation (INO) | payer BC ==
[2024-06-17 14:46] LABS: Glucose,Whole Blood 88 mg/dL (70-110)
[2024-06-17 15:40] LABS: Basophils % (A) 0 %; Eosinophils # (A) 0.2 k/uL (0-0.7); Eosinophils % (A) 2 %; HCT 45.3 % (39.0-53.0); HGB 15.3 gm/dL (13.0-17.5); Lymphocytes # (A) 1.8 k/uL (1.0-4.8); Lymphocytes % (A) 23 %; MCH 28.2 pg (25.0-35.0); MCHC 33.7 g/dL (31.0-37.0); MCV 83.6 fL (80.0-100.0); Mean Platelet Volume 7.8; Monocytes # (A) 0.5 k/uL (0-1.0); Monocytes % (A) 6 %; Neutrophils # (A) 5.2 k/uL (1.3-7.7); Neutrophils % (A) 67 %; Platelet Count 254 k/uL (150-450); RBC 5.41 m/uL (4.30-5.90); RDW 12.7 % (11.5-15.5); WBC 7.7 k/uL (3.8-10.6)
[2024-06-17 15:46] LABS: Prothrombin Time 10.7 sec (10.0-12.5)
[2024-06-17 15:48] LABS: ALT 98 U/L (4-49); AST 37 U/L (17-59); African American GFR (CKD) >90 (>60 ml/min/1.73 sqM); Albumin 4.7 g/dL (3.5-5.0); Alkaline Phosphatase 96 U/L (38-126); Anion Gap 10 mmol/L; Blood Urea Nitrogen 13 mg/dL (9-20); Calcium 9.9 mg/dL (8.4-10.2); Carbon Dioxide 25 mmol/L (22-30); Chloride 104 mmol/L (98-107); Glucose 92 mg/dL (74-99); Non-African American GFR(CKD) >90 (>60 ml/min/1.73 sqM); Potassium 4.6 mmol/L (3.5-5.1); Sodium 139 mmol/L (137-145); Total Bilirubin 0.6 mg/dL (0.2-1.3); Total Protein 7.3 g/dL (6.3-8.2)
--- NOTE | 2024-06-17 15:59 | ED ---
Dizziness HPI - General Chief Complaint: Dizziness Stated Complaint: dizziness Time Seen by Provider: 06/17/24 15:27 Source: patient, family, RN notes reviewed, old records reviewed Mode of arrival: wheelchair Limitations: physical limitation - History of Present Illness Initial Comments: This is a 53-year-old male to ER for dizziness with a complicated recent medical history complaining of just not feeling well feeling off may be anxiety he did take an anxiety pill which did not help MD Complaint: dizziness -: hour(s) Timing: gradual onset, intermittent History of Same: No History of Trauma: No Severity: mild Improves With: nothing Worsens With: nothing Associated Symptoms: denies other symptoms - Related Data Home Medications Medication Instructions Recorded Confirmed lisinopriL [Zestril] 10 mg PO DAILY@0530 05/16/24 06/17/24 ALPRAZolam [Xanax] 0.25 mg PO TID PRN 06/17/24 06/17/24 Aspirin [Adult Low Dose Aspirin EC] 81 mg PO DAILY@0530 06/17/24 06/17/24 Atorvastatin [Lipitor] 40 mg PO HS@2100 06/17/24 06/17/24 Clopidogrel [Plavix] 75 mg PO DAILY@0530 06/17/24 06/17/24 amLODIPine [Norvasc] 5 mg PO DAILY@0530 06/17/24 06/17/24 Allergies Allergy/AdvReac Type Severity Reaction Status Date / Time No Known Allergies Allergy Verified 06/17/24 18:22 Review of Systems ROS Statement: Those systems with pertinent positive or pertinent negative responses have been documented in the HPI. ROS Other: All systems not noted in ROS Statement are negative. Past Medical History Past Medical History: CVA/TIA, Hypertension Additional Past Medical History / Comment(s): Recent CVA month ago 05/19 with right sided deficits History of Any Multi-Drug Resistant Organisms: None Reported Past Surgical History: No Surgical Hx Reported Past Anesthesia/Blood Transfusion Reactions: No Reported Reaction Past Psychological History: No Psychological Hx Reported Smoking Status: Former smoker Past Alcohol Use History: Daily Past Drug Use History: None Reported General Exam Limitations: physical limitation General appearance: alert, in no apparent distress Head exam: Present: atraumatic, normocephalic, normal inspection Eye exam: Present: normal appearance, PERRL, EOMI. Absent: scleral icterus, conjunctival injection, periorbital swelling ENT exam: Present: normal exam, mucous membranes moist Neck exam: Present: normal inspection. Absent: tenderness, meningismus, lymp hadenopathy Respiratory exam: Present: normal lung sounds bilaterally. Absent: respiratory distress, wheezes, rales, rhonchi, stridor Cardiovascular Exam: Present: regular rate, normal rhythm, normal heart sounds. Absent: systolic murmur, diastolic murmur, rubs, gallop, clicks GI/Abdominal exam: Present: soft, normal bowel sounds. Absent: distended, tenderness, guarding, rebound, rigid Extremities exam: Present: normal inspection, full ROM, normal capillary refill. Absent: tenderness, pedal edema, joint swelling, calf tenderness Back exam: Present: normal inspection Neurological exam: Present: alert, oriented X3, CN II-XII intact Psychiatric exam: Present: normal affect, normal mood Skin exam: Present: warm, dry, intact, normal color. Absent: rash Course Vital Signs 06/17/24 06/17/24 06/17/24 14:34 14:43 15:44 Temperature 98 F Pulse Rate 87 87 76 Respiratory 16 18 18 Rate Blood Pressure 124/78 112/89 113/62 O2 Sat by Pulse 98 95 94 L Oximetry 06/17/24 06/17/24 06/17/24 16:26 17:44 18:27 Temperature Pulse Rate 73 76 75 Respiratory 18 18 18 Rate Blood Pressure 118/81 125/84 119/81 O2 Sat by Pulse 95 96 97 Oximetry 06/17/24 06/17/24 06/18/24 19:48 22:17 01:32 Temperature 97.9 F 97.6 F Pulse Rate 78 70 90 Respiratory 18 18 18 Rate Blood Pressure 112/69 103/91 105/68 O2 Sat by Pulse 97 Oximetry 06/18/24 06/18/24 06/18/24 06:04 09:35 10:13 Temperature 97.9 F Pulse Rate 68 79 87 Respiratory 19 18 18 Rate Blood Pressure 119/78 118/74 125/84 O2 Sat by Pulse 97 98 96 Oximetry 06/18/24 06/18/24 12:44 15:26 Temperature Pulse Rate 74 82 Respiratory 18 18 Rate Blood Pressure 122/78 127/79 O2 Sat by Pulse 98 98 Oximetry - Reevaluation(s) Reevaluation #1: 06/17/24 16:24 Medical records reviewed Reevaluation #2: No change in symptoms here in the ER still anxious Reevaluation #3: Patient informed of results and questions answered Reevaluation #4: Was pt. sent in by a medical professional or institution (IVAN Joaquin, SHOOTING GALLERY OPERATOR, urgent care, hospital, or skilled nursing...) When possible be specific @ -no Did you speak to anyone other than the patient for history (EMS, parent, family, police, friend...)? What history was obtained from this source @ -no Did you review nursing and triage notes (agree or disagree)? Why? @ -agree Are old charts reviewed (outside hosp., previous admission, EMS record, old EKG, old radiological studies, urgent care reports/EKG's, skilled nursing records)? Report findings @ -yes Differential Diagnosis (chest pain, altered mental status, abdominal pain women, abdominal pain men, vaginal bleeding, weakness, fever, dyspnea, syncope, headache, dizziness, GI bleed, back pain, seizure, CVA, palpatations, mental health, musculoskeletal)? @ -prior EKG interpreted by me (3pts min.). @ -yes X-rays interpreted by me (1pt min.). @ -no CT interpreted by me (1pt min.). @ -yes negative for acute disease U/S interpreted by me (1pt. min.). @ -no What testing was considered but not performed or refused? (CT, X-rays, U/S, labs)? Why? @ -none What meds were considered but not given or refused? Why? @ -none Did you discuss the management of the patient with other professionals (professionals i.e. IVAN Joaquin, SHOOTING GALLERY OPERATOR, lab, RT, psych nurse, social services assistant, fine arts instructor, teacher, home lending officer, case mgr)? Give summary @ -no Was smoking cessation discussed for >3mins.? @ -no Was critical care preformed (if so, how long)? @ -no Were there social determinants of health that impacted care today? How? (Homelessness, low income, unemployed, alcoholism, drug addiction, transportation, low edu. Level, literacy, decrease access to med. care, [facility], rehab)? @ -none Was there de-escalation of care discussed even if they declined (Discuss DNR or withdrawal of care, Hospice)? DNR status @ -no What co-morbidities impacted this encounter? (DM, HTN, Smoking, COPD, CAD, Cancer, CVA, ARF, Chemo, Hep., AIDS, mental health diagnosis, sleep apnea, morbid obesity)? @ -none Was patient admitted / discharged? Hospital course, mention meds given and route, prescriptions, significant lab abnormalities, going to OR and other pertinent info. @ - 53 male to the ER for evaluation patient presents today for evaluation of dizziness complicated recent medical history complicated by significant CVA. Patient has no acute findings on imaging here in the ER patient will be admitted for ops patient neurology Admitted Undiagnosed new problem with uncertain prognosis? @ -no Drug Therapy requiring intensive monitoring for toxicity (Heparin, Nitro, Insulin, Cardizem)? @ -no Were any procedures done? @ -no Diagnosis/symptom? @ -Dizziness likely anxiety Acute, or Chronic, or Acute on Chronic? @ -Acute Uncomplicated (without systemic symptoms) or Complicated (systemic symptoms)? @ -Complicated Side effects of treatment? @ -no Exacerbation, Progression, or Severe Exacerbation? @ -exacerbation Poses a threat to life or bodily function? How? (Chest pain, USA, DC, pneumonia, PE, COPD, DKA, ARF, appy, cholecystitis, CVA, Diverticulitis, Homicidal, Suici pat, threat to staff... and all critical care pts) @ -yes Reevaluation #5: Differential Dizziness: Benign paroxysmal positional Vertigo, Meniere's disease, otitis media, acoustic neuroma, vertebrobasilar insufficiency, cerebellar stroke, encephalitis, hypovolemic, arrhythmia, coronary artery syndrome, anemia, this is not meant to be an all-inclusive list EKG Findings - EKG Comments: EKG Findings:: EKG is sinus rhythm 81 MN 160 QRS 90 QTc 387 - EKG Results: EKG: interpreted by ERMD Medical Decision Making - Medical Decision Making 53 male to the ER for evaluation patient presents today for evaluation of di zziness complicated recent medical history complicated by significant CVA. Patient has no acute findings on imaging here in the ER patient will be admitted for ops patient neurology - Lab Data Result diagrams: 06/18/24 09:07 06/18/24 09:07 Lab Results 06/17/24 06/17/24 06/17/24 Range/Units 14:45 15:23 15:23 WBC 7.7 (3.8-10.6) k/uL RBC 5.41 (4.30-5.90) m/uL Hgb 15.3 (13.0-17.5) gm/dL Hct 45.3 (39.0-53.0) % MCV 83.6 (80.0-100.0) fL MCH 28.2 (25.0-35.0) pg MCHC 33.7 (31.0-37.0) g/dL RDW 12.7 (11.5-15.5) % Plt Count 254 (150-450) k/uL MPV 7.8 Neutrophils % 67 % Lymphocytes % 23 % Monocytes % 6 % Eosinophils % 2 % Basophils % 0 % Neutrophils # 5.2 (1.3-7.7) k/uL Lymphocytes # 1.8 (1.0-4.8) k/uL Monocytes # 0.5 (0-1.0) k/uL Eosinophils # 0.2 (0-0.7) k/uL Basophils # 0.0 (0-0.2) k/uL PT 10.7 (10.0-12.5) sec INR 1.0 (<1.2) Sodium (137-145) mmol/L Potassium (3.5-5.1) mmol/L Chloride (98-107) mmol/L Carbon Dioxide (22-30) mmol/L Anion Gap mmol/L BUN (9-20) mg/dL Creatinine (0.66-1.25) mg/dL Est GFR (CKD-EPI)AfAm (>60 ml/min/1.73 sqM) Est GFR (CKD-EPI)NonAf (>60 ml/min/1.73 sqM) Glucose (74-99) mg/dL POC Glucose (mg/dL) 88 (70-110) mg/dL POC Glu Supply Requirements Officer ID Monroy Neena Calcium (8.4-10.2) mg/dL Phosphorus (2.5-4.5) mg/dL Magnesium (1.6-2.3) mg/dL Total Bilirubin (0.2-1.3) mg/dL AST (17-59) U/L ALT (4-49) U/L Alkaline Phosphatase (38-126) U/L Troponin I (0.000-0.034) ng/mL Total Protein (6.3-8.2) g/dL Albumin (3.5-5.0) g/dL TSH (0.465-4.680) mIU/L Free T4 (0.78-2.19) ng/dL 06/17/24 06/17/24 06/17/24 Range/Units 15:23 15:23 16:09 WBC (3.8-10.6) k/uL RBC (4.30-5.90) m/uL Hgb (13.0-17.5) gm/dL Hct (39.0-53.0) % MCV (80.0-100.0) fL MCH (25.0-35.0) pg MCHC (31.0-37.0) g/dL RDW (11.5-15.5) % Plt Count (150-450) k/uL MPV Neutrophils % % Lymphocytes % % Monocytes % % Eosinophils % % Basophils % % Neutrophils # (1.3-7.7) k/uL Lymphocytes # (1.0-4.8) k/uL Monocytes # (0-1.0) k/uL Eosinophils # (0-0.7) k/uL Basophils # (0-0.2) k/uL PT (10.0-12.5) sec INR (<1.2) Sodium 139 (137-145) mmol/L Potassium 4.6 (3.5-5.1) mmol/L Chloride 104 (98-107) mmol/L Carbon Dioxide 25 (22-30) mmol/L Anion Gap 10 mmol/L BUN 13 (9-20) mg/dL Creatinine 0.65 L (0.66-1.25) mg/dL Est GFR (CKD-EPI)AfAm >90 (>60 ml/min/1.73 sqM) Est GFR (CKD-EPI)NonAf >90 (>60 ml/min/1.73 sqM) Glucose 92 (74-99) mg/dL POC Glucose (mg/dL) (70-110) mg/dL POC Glu Supply Requirements Officer ID Calcium 9.9 (8.4-10.2) mg/dL Phosphorus 4.5 (2.5-4.5) mg/dL Magnesium 2.1 (1.6-2.3) mg/dL Total Bilirubin 0.6 (0.2-1.3) mg/dL AST 37 (17-59) U/L ALT 98 H (4-49) U/L Alkaline Phosphatase 96 (38-126) U/L Troponin I <0.012 (0.000-0.034) ng/mL Total Protein 7.3 (6.3-8.2) g/dL Albumin 4.7 (3.5-5.0) g/dL TSH 0.322 L (0.465-4.680) mIU/L Free T4 1.17 (0.78-2.19) ng/dL - Radiology Data Radiology results: report reviewed (CT brain CTA head neck), image reviewed Disposition Clinical Impression: Dizziness Disposition: ADMITTED IP TO THIS [facility] Condition: Fair Is patient prescribed a controlled substance at d/c from ED?: No Time of Disposition: 18:40
[2024-06-17] MEDS: SODIUM CHLORIDE 0.9% 1,000 ML IV STA (16:26)
[2024-06-17 16:37] LABS: Magnesium 2.1 mg/dL (1.6-2.3); Phosphorus 4.5 mg/dL (2.5-4.5)
[2024-06-17] MEDS: SODIUM CHLORIDE 0.9% 500 ML 500 ML IV STA (17:03)
--- NOTE | 2024-06-17 17:19 | CT ---
EXAMINATION TYPE: CT brain wo con CT DLP: 1223.8 mGycm, Automated exposure control for dose reduction was used. DATE OF EXAM: 06/17/2024 5:11 PM COMPARISON: MRI brain 05/16/2024 CLINICAL INDICATION: Male, 53 years old with history of dizziness, weakness, dizziness TECHNIQUE: Brain: Axial CT images of the brain were obtained with coronal and sagittal reformats created and rev iewed. Contrast used: None. Oral contrast used: None. FINDINGS: Brain: Extra-axial spaces: No abnormal extra-axial fluid collections. Ventricular system: Within normal limits Cerebral parenchyma:Matter changes in the left frontal lobe near the lateral to the lateral ventricle . No acute intraparenchymal hemorrhage or mass effect. The vazquez-white junction is well differentiate d. Cerebellum: Unremarkable. Mass effect: No evidence of midline shift. Intracranial vasculature: unremarkable Soft tissues: Normal. Calvarium/osseous structures: No depressed skull fracture. Paranasal sinuses and mastoid air cells: Mild scattered paranasal sinus disease. Visualized orbits: Orbital contents are intact. IMPRESSION: 1. No acute intracranial process. 2. Similar white matter changes compared to prior MRI. [facility], , 06/17/2024 5:17 PM
[2024-06-17 17:53] LABS: T4, Free (Free Thyroxine) 1.17 ng/dL (0.78-2.19)
--- NOTE | 2024-06-17 18:10 | CT ---
EXAMINATION TYPE: CT angio head neck CT DLP: 765.4 mGycm, Automated exposure control for dose reduction was used. DATE OF EXAM: 06/17/2024 5:24 PM COMPARISON: CT brain same day. CLINICAL INDICATION: Male, 53 years old with history of dizzy; PHH, weakness, dizziness TECHNIQUE: Axially acquired helical CT angiogram of the head and neck was obtained with contrast. Axi al images are supplemented with 3D reconstructions and MIP images which were post-processed at an in dependent workstation. NASCET criteria used. Contrast used:65ml mL of Isovue 370 with IV Contrast, Oral contrast used: None. FINDINGS: CTA HEAD: No evidence of acute intracranial hemorrhage, mass effect, or midline shift. The ventricles, sulci, a nd cisterns are unremarkable. Vertebral arteries: The vertebral arteries are patent. Vertebral artery dominance: Codominant Basilar artery: The basilar artery is intact. The basilar artery bifurcation is normal. Internal Carotid arteries: The cervical, petrous, cavernous and supraclinoid segments are normal. GEORGETTE: Patent with no evidence of aneurysm. ACOM: Present without evidence of aneurysm. MCA: Patent with no evidence of aneurysm. ORDERLIES TEACHER: Patent with no evidence of aneurysm. PCOM: Hypoplastic bilaterally. Dural sinuses: Patent. CTA NECK: Right Carotid System: The common carotid artery and external carotid artery are patent. The carotid bifurcation demonstrate s no evidence of hemodynamically significant stenosis. The remaining portions of the internal carotid artery demonstrate normal size without significant narrowing. Left Carotid System: The common carotid artery and external carotid artery are patent. The carotid bifurcation demonstrate s no evidence of hemodynamically significant stenosis. The remaining portions of the internal carotid artery demonstrate normal size without significant narrowing. Vertebral arteries are patent without evidence hemodynamically significant stenosis. There is a three-vessel aortic arch. The origins of the great vessels are patent. No evidence of hemo dynamically significant stenosis. IMPRESSION: 1. No evidence of dissection of the cervical internal carotid arteries or vertebral arteries or any e vidence of significant stenosis at the carotid bifurcations. 2. No evidence of intracranial high-grade stenosis or intracranial aneurysm. [facility], Workstation: [id number], 06/17/2024 6:08 PM
[2024-06-17] MEDS: ACETAMINOPHEN TAB 500 MG TAB PO STA (18:25)
[2024-06-17] MEDS ORDERED: ONDANSETRON 4 MG/2 ML VIAL IVP PRN (19:18)
[2024-06-17] MEDS ORDERED: NALOXONE 0.4 MG/ML 1 ML VIAL IV PRN (19:18)
[2024-06-17] MEDS: SODIUM CHLORIDE 0.9% 1,000 ML IV SCH (20:22)
[2024-06-18] MEDS: ATORVASTATIN 40 MG TAB PO STA (01:31)
[2024-06-18 06:05] VITALS: TEMP 97.9
[2024-06-18] MEDS: ALPRAZolam 0.25 MG TAB PO PRN (07:54)
[2024-06-18 09:35] VITALS: RESP 18
[2024-06-18 10:01] LABS: Basophils % (A) 0 %; Eosinophils # (A) 0.1 k/uL (0-0.7); Eosinophils % (A) 2 %; HCT 44.2 % (39.0-53.0); HGB 14.6 gm/dL (13.0-17.5); Lymphocytes % (A) 18 %; MCH 28.9 pg (25.0-35.0); MCHC 33.1 g/dL (31.0-37.0); MCV 87.1 fL (80.0-100.0); Mean Platelet Volume 7.7; Monocytes # (A) 0.2 k/uL (0-1.0); Monocytes % (A) 3 %; Neutrophils # (A) 4.3 k/uL (1.3-7.7); Neutrophils % (A) 75 %; Platelet Count 234 k/uL (150-450); RBC 5.08 m/uL (4.30-5.90); WBC 5.7 k/uL (3.8-10.6)
[2024-06-18] MEDS: ASPIRIN 81 MG PO STA (10:10)
[2024-06-18] MEDS: CLOPIDOGREL 75 MG TAB PO ONE (10:10)
[2024-06-18 10:51] LABS: ALT 79 U/L (4-49); AST 35 U/L (17-59); African American GFR (CKD) >90 (>60 ml/min/1.73 sqM); Alkaline Phosphatase 100 U/L (38-126); Anion Gap 8 mmol/L; Blood Urea Nitrogen 10 mg/dL (9-20); Calcium 9.1 mg/dL (8.4-10.2); Carbon Dioxide 21 mmol/L (22-30); Chloride 110 mmol/L (98-107); Glucose 137 mg/dL (74-99); Magnesium 1.8 mg/dL (1.6-2.3); Non-African American GFR(CKD) >90 (>60 ml/min/1.73 sqM); Phosphorus 3.2 mg/dL (2.5-4.5); Potassium 4.1 mmol/L (3.5-5.1); Sodium 139 mmol/L (137-145); Total Bilirubin 0.7 mg/dL (0.2-1.3); Total Protein 6.4 g/dL (6.3-8.2)
--- NOTE | 2024-06-18 14:50 | P.HPIM ---
History of Present Illness History of present illness; 53-year-old male with a past medical history of dyslipidemia, hypertension, CVA (05/19) presents with complaints of dizziness. Patient reports yesterday at home he was feeling dizziness when he woke up, t hought it was anxiety so took a Xanax and drank some water.Patient reports then he went and laid down on the couch for a while and was still feeling dizzy so decided to eat some food and rest again. Patient reports when he awoke he still was feeling dizzy and was worried that he potentially was having another stroke so decided to come to the hospital. Patient denies any new onset weakness, bowel incontinence or urinary incontinence, paresthesias, or dysarthria. Patient reports the neurological deficits from his previous stroke 1 month ago have continued to improve at home and he has not noticed any recent setback. Initial lab work from the ER was significant for WBC 7.7, hemoglobin 15.3, sodium 139, potassium 4.6, creatinine 0.65, AST 37, ALT 98, troponins less than 0.012, TSH 0.322, and T4 1.17. EKG done in the ER showed heart rate of 81, no ST segment elevation or depression seen, no T-wave inversions seen. Sinus rhythm QTc [address] Head: No acute intracranial process, similar white matter changes compared to prior MRI. CTA head No evidence of dissection of the cervical internal carotid arteries or vertebral arteries or any evidence of significant stenosis at the carotid bifurcation. No evidence of intracranial high-grade stenosis or intracranial aneurysm. Patient admitted to internal medicine service REVIEW OF SYSTEMS: CONSTITUTIONAL: No fever, no malaise, no fatigue. HEENT: No recent visual problems or hearing problems. Denied any sore throat. CARDIOVASCULAR: No chest pain, orthopnea, PND, no palpitations, no syncope. PULMONARY: No shortness of breath, no cough, no hemoptysis. GASTROINTESTINAL: No diarrhea, no nausea, no vomiting, no abdominal pain. NEUROLOGICAL: No headaches, no weakness, no numbness. Admits to dizziness. HEMATOLOGICAL: Denies any bleeding or petechiae. GENITOURINARY: Denies any burning micturition, frequency, or urgency. MUSCULOSKELETAL/RHEUMATOLOGICAL: Denies any joint pain, swelling, or any muscle pain. ENDOCRINE: Denies any polyuria or polydipsia. The rest of the 14-point review of systems is negative. PHYSICAL EXAMINATION: GENERAL: The patient is alert and oriented x3, not in any acute distress. Well developed, well nourished. HEENT: Pupils are round and equally reacting to light. EOMI. No scleral icterus. No conjunctival pallor. Normocephalic, atraumatic. No pharyngeal erythema. No thyromegaly. CARDIOVASCULAR: S1 and S2 present. No murmurs, rubs, or gallops. PULMONARY: Chest is clear to auscultation b/l, no wheezing or crackles. ABDOMEN: Soft, nontender, nondistended, normoactive bowel sounds. No palpable organomegaly. MUSCULOSKELETAL: No joint swelling or deformity. EXTREMITIES: No cyanosis, clubbing, or pedal edema. NEUROLOGICAL: Right-sided muscular deficits noted, 3-4 out of 5 motor strength in handgrip, 3 out of 5 arm and lower extremity strength, slight deviation of the tongue to the right upon protrusion. Consistent with previous physical exam findings during previous stroke, and do not appear to be worse than when patient initially left the hospital last time. SKIN: No rashes. Assessment & Plan: Acute: #Dizziness/rule out CVA: Of note patient recently had CVA 05/19 Neurology on consult, appreciate further recommendations Fall precautions Neurochecks Continue to monitor #Subclinical hypothyroidism: Patient found to have a TSH of 0.322 Vitals within normal limits and EKG shows no signs of tachycardia or A-fib Continue to monitor Chronic: #Hypertension: Currently holding home BP meds, BP here is in the 120 systolic Continue to monitor #Dyslipidemia: Continue home atorvastatin 40 mg p.o. at bedtime F: NS 75 cc/h E: None N: Heart healthy diet A: Normally ambulates unassisted at home GI ppx: Protonix 40 mg p.o. daily CODE STATUS: Full code Dispo: Pending clinical course Andreas Neff MD PGY-1 FM Dictation was produced using [employer] dictation software. please excuse any grammatical, word or spelling errors. Past Medical History Past Medical History: CVA/TIA, Hypertension Additional Past Medical History / Comment(s): Recent CVA month ago 05/19 with right sided deficits History of Any Multi-Drug Resistant Organisms: None Reported Past Surgical History: No Surgical Hx Reported Past Anesthesia/Blood Transfusion Reactions: No Reported Reaction Past Psychological History: No Psychological Hx Reported Smoking Status: Former smoker Past Alcohol Use History: Daily Past Drug Use History: None Reported Medications and Allergies Home Medications Medication Instructions Recorded Confirmed Type lisinopriL [Zestril] 10 mg PO DAILY@52905/16/24 06/17/24 History ALPRAZolam [Xanax] 0.25 mg PO TID PRN 06/17/24 06/17/24 History Aspirin [Adult Low Dose Aspirin EC] 81 mg PO DAILY@52906/17/24 06/17/24 History Atorvastatin [Lipitor] 40 mg PO HS@2100 06/17/24 06/17/24 History Clopidogrel [Plavix] 75 mg PO DAILY@52906/17/24 06/17/24 History amLODIPine [Norvasc] 5 mg PO DAILY@52906/17/24 06/17/24 History Allergies Allergy/AdvReac Type Severity Reaction Status Date / Time No Known Allergies Allergy Verified 06/17/24 18:22 Physical Exam Vitals: Vital Signs Temp Pulse Resp BP Pulse Ox 06/18/24 06:04 97.9 F 68 19 119/78 97 06/18/24 01:32 97.6 F 90 18 105/68 97 06/17/24 22:17 70 18 103/91 06/17/24 19:48 97.9 F 78 18 112/69 06/17/24 18:27 75 18 119/81 97 06/17/24 17:44 76 18 125/84 96 06/17/24 16:26 73 18 118/81 95 06/17/24 15:44 76 18 113/62 94 L 06/17/24 14:43 87 18 112/89 95 06/17/24 14:34 98 F 87 16 124/78 98 Results CBC & Chem 7: 06/18/24 09:07 06/18/24 09:07 Labs: Abnormal Lab Results - Last 24 Hours (Table) 06/17/24 06/17/24 Range/Units 15:23 16:09 Creatinine 0.65 L (0.66-1.25) mg/dL ALT 98 H (4-49) U/L TSH 0.322 L (0.465-4.680) mIU/L
--- NOTE | 2024-06-18 14:54 | P.DS ---
Providers Date of admission: 06/17/24 19:19 Attending physician: Connor Crews Consults: 06/17/24 19:18 Consult Physician Routine Consulting Provider: Robby Mcduffie Consult Reason/Comments: dizziness Do you want consulting provider notified?: Yes Primary care physician: Curt Carter Hospital Course: Discharge Diagnosis: Dizziness/rule out CVA Subclinical hypothyroidism Hypertension Dyslipidemia History of CVA (05/19) Hospital Course: History of present illness; 53-year-old male with a past medical history of dyslipidemia, hypertension, CVA (05/19) presents with complaints of dizziness. Patient reports yesterday at home he was feeling dizziness when he woke up, thought it was anxiety so took a Xanax and drank some water.Patient reports then he went and laid down on the couch for a while and was still feeling dizzy so decided to eat some food and rest again. Patient reports when he awoke he still was feeling dizzy and was worried that he potentially was having another stroke so decided to come to the hospital. Patient denies any new onset weakness, bowel incontinence or urinary incontinence, paresthesias, or dysarthria. Patient reports the neurological deficits from his previous stroke 1 month ago have continued to improve at home and he has not noticed any recent setback. Initial lab work from the ER was significant for WBC 7.7, hemoglobin 15.3, sodium 139, potassium 4.6, creatinine 0.65, AST 37, ALT 98, troponins less than 0.012, TSH 0.322, and T4 1.17. EKG done in the ER showed heart rate of 81, no ST segment elevation or depression seen, no T-wave inversions seen. Sinus rhythm QTc [address] Head: No acute intracranial process, similar white matter changes compared to prior MRI. CTA head No evidence of dissection of the cervical internal carotid arteries or vertebral arteries or any evidence of significant stenosis at the carotid bifurcation. No evidence of intracranial high-grade stenosis or intracranial aneurysm. While admitted the patient did not show any signs of further note neurological deficit compared to what his new baseline was after his previous stroke in April. Patient reported that during these episodes of dizziness he did not notice any diminished strength on the right side, paresthesias, or your urinary and bowel incontinence. Patient's imaging revealed no new acute intracranial processes and similar white matter changes compared to prior MRI. Patient CTA head showed no dissection of the carotid arteries or vertebral arteries nor any evidence of stenosis at the carotid bifurcation. Also no evidence of intracranial aneurysm. Once patient was observed to not show any signs of CVA patient was deemed medically and hemodynamically stable for discharge to home. Patient is advised to follow-up with his PCP and neurologist. Patient was instructed to take half of his normal Norvasc medication as his blood pressures during his hospital stay were on the softer side running in the 110s to 120s systolic. Patient is advised to discuss this change in Norvasc when he follows up with his PCP. Pt seen and examined at bedside: Sitting up in bed and excited at the prospect of going home. Vital signs reveiwed and stable: General: non toxic, no distress, appears at stated age, normal weight Derm: no unusual rashes/lesions, warm Head: atraumatic, normocephalic, symmetric Eyes: EOMI, no lid lag, anicteric sclera, pupils equal round reactive to light ENT: Nose and ears atraumatic Neck: No cervical lymphadenopathy, trachea midline, supple Mouth: no lip lesion, mucus membranes moist Cardiovascular: S1S2 reg, no murmur, positive dorsalis pedis pulse bilateral, no edema Lungs: Decreased air entry bilaterally, no rhonchi, no rales, no accessory muscle use Abdominal: soft, nontender to palpation, no guarding Ext: muscle strength 5 out of 5 in all 4 extremities grossly, no gross muscle atrophy, no contractures, Neuro: CN II-XI grossly intact, no gross focal neuro deficits Psych: Alert, oriented, appropriate affect A total of greater than 30 minutes were spent preparing this complex discarge summary. Patient was discharged on 06/18/2024, 14: 44. Patient Condition at Discharge: Fair Plan - Discharge Summary New Discharge Prescriptions: Continue Atorvastatin [Lipitor] 40 mg PO HS@2100 ALPRAZolam [Xanax] 0.25 mg PO TID PRN PRN Reason: Anxiety lisinopriL [Zestril] 10 mg PO DAILY@0530 amLODIPine [Norvasc] 5 mg PO DAILY@0530 Clopidogrel [Plavix] 75 mg PO DAILY@0530 Aspirin [Adult Low Dose Aspirin EC] 81 mg PO DAILY@0530 Discharge Medication List lisinopriL [Zestril] 10 mg PO DAILY@0530 05/16/24 [History] ALPRAZolam [Xanax] 0.25 mg PO TID PRN 06/17/24 [History] Aspirin [Adult Low Dose Aspirin EC] 81 mg PO DAILY@52906/17/24 [History] Atorvastatin [Lipitor] 40 mg PO HS@2100 06/17/24 [History] Clopidogrel [Plavix] 75 mg PO DAILY@52906/17/24 [History] amLODIPine [Norvasc] 5 mg PO DAILY@52906/17/24 [History] Follow up Appointment(s)/Referral(s): Curt Carter MD [Primary Care Provider] - 1-2 days Patient Instructions/Handouts: Dizziness (ED) Discharge Disposition: HOME SELF-CARE
[2024-06-18 15:27] VITALS: BP 127/79; PULSE 82
--- NOTE | 2024-06-18 16:15 | P.PN ---
Progress Note - Text Progress Note Date: 06/18/24 Primary attending notified me that he will discontinue neurology consult since felt patient was back to baseline and nothing to address.
[2024-06-18] MEDS ORDERED: ATORVASTATIN 40 MG TAB PO SCH (21:00)
[2024-06-19] MEDS ORDERED: ASPIRIN 81 MG PO SCH (05:30)
[2024-06-19] MEDS ORDERED: CLOPIDOGREL 75 MG TAB PO SCH (05:30)
[2024-06-19] MEDS ORDERED: PANTOPRAZOLE 40 MG TABLET PO SCH (07:30)
== END 2024-06-18 18:00 | disposition home or self-care (01) ==
LOC: EC 14:20 → 3SCARD 19:19
PROVIDERS: ADMIT Hospitalist; ATTEND Hospitalist
DX: R42 Dizziness and giddiness (principal); R53.1 Weakness; E78.5 Hyperlipidemia, unspecified; E03.8 Other specified hypothyroidism; I10 Essential (primary) hypertension; F41.9 Anxiety disorder, unspecified; Z79.82 Long term (current) use of aspirin; Z79.02 Long term (current) use of antithrombotics/antiplatelets; Z79.899 Other long term (current) drug therapy; Z87.891 Personal history of nicotine dependence; Z86.73 Personal history of transient ischemic attack (TIA), and cerebral infarction without residual deficits
CPT/HCPCS: 96360; 96361; 99285; 36415; 93005; 84439; 80053 ×2; 84443; 83735 ×2; 84100 ×2; 84484; 85025 ×2; 85610; 70496; 70450; 70498; G0378 ×2; Q9967

== ENCOUNTER → 2024-08-28 | Outpatient (CLI) | payer BC ==
--- NOTE | 2024-09-30 05:13 | EM ---
EVENT MONITOR STUDY PERFORMED: 30-day event monitor. DIAGNOSIS: Cerebral infarction. INTERPRETATION: Underlying rhythm is sinus with an average heart rate of 80 beats per minute. Heart rate varies from 55 beats per minute to 140 beats per minute. There were no episodes of sustained ventricular or supraventricular tachyarrhythmias. There were no episodes of more than 2-second pauses. We did not find any episodes of atrial fibrillation. This 30-day event monitor did not reveal any episodes of atrial fibrillation. MMODL / IJN: [id number] /
== END | disposition home or self-care (01) ==
LOC: RADECHMAIN 07:18
PROVIDERS: ATTEND Psychiatry & Neurology Neurology
DX: I69.30 Unspecified sequelae of cerebral infarction (principal); I47.10 Supraventricular tachycardia, unspecified
CPT/HCPCS: 93270

== ENCOUNTER → 2024-09-10 | Outpatient (CLI) | payer BC ==
--- NOTE | 2024-09-10 21:38 | MR ---
EXAMINATION TYPE: MR brain wo con DATE OF EXAM: 09/10/2024 9:08 PM COMPARISON: None. CLINICAL INDICATION: Male, 54 years old with history of I69.30, S/P stroke in Sept. right side weak TECHNIQUE: Multiplanar, multiecho imaging on a 3.0 Cece magnet is performed through the brain. Stud y is performed within 24 hours of arrival to the hospital.Multiplanar, multiecho imaging on a 3.0 Hayley la magnet is performed through the knee. IV Contrast: mL (None, if empty) FINDINGS: The craniovertebral junction is normal. The pituitary is normal. Diffusion-weighted imaging is performed. There is a hypointense area in the left. Ventricular region with surrounding hyperintensity. Findings can be related to prior infarct this extends towards the t halamus. Periventricular region on diffusion is hyperintense on T2 and inversion recovery weighted sequences. There is hyperintensity extending through the left cerebral peduncle into the brainstem. This may be related to some wallerian degeneration. There are a few additional scattered punctate deep white matter changes within the frontal lobes bila terally and within subcortical regions along the right parietal lobe. These are nonspecific but likel y related to chronic white matter ischemic changes. Other etiologies could include vasculitis, migrai ne headaches, multiple sclerosis. Ventricles and sulci are appropriate for the patient age. IMPRESSION: 1. Diffusion hyperintensity surrounding hypointense areas suspicious for prior maturing infarct. 2. Some wallerian degeneration may be present from a prior infarct extending into the left cerebral p eduncle and into the brainstem. 3. There are additional punctate deep white matter changes likely chronic in nature [facility], , 09/10/2024 9:35 PM
== END | disposition home or self-care (01) ==
LOC: RADMRIMAIN 19:45
PROVIDERS: ATTEND Psychiatry & Neurology Neurology
DX: I69.30 Unspecified sequelae of cerebral infarction (principal)
CPT/HCPCS: 70551

== ENCOUNTER 2024-09-25 10:38 | Day surgery (SDC) | payer BC ==
[2024-09-22 16:01] VITALS: BMI 32.1
[~2024-09-25 10:38] MED LIST: BENZOCAINE SPRAY 1 CAN TOPICAL PRN; fentaNYL (PF) 50 MCG/ML 2 ML AMP IVP PRN
[2024-09-25] MEDS: SODIUM CHLORIDE 0.9% 500 ML 500 ML IV ONE (11:12)
[2024-09-25 11:15] VITALS: RESP 16; TEMP 98.5
[2024-09-25] MEDS ORDERED: SODIUM CHLORIDE 0.9% 500 ML 500 ML IV SCH (11:15)
[2024-09-25] MEDS: BENZOCAINE SPRAY 1 EACH MM ONE (12:38)
[2024-09-25] MEDS: fentaNYL (PF) 50 MCG/1 ML VIAL IVP ONE (12:50)
[2024-09-25] MEDS: MIDAZOLAM 2 MG/2 ML VIAL IVP ONE ×3 (12:50)
[2024-09-25] MEDS: MIDAZOLAM 2 MG/2 ML VIAL IV PRN (12:52)
[2024-09-25 14:04] VITALS: BP 119/73; PULSE 81
--- NOTE | 2024-09-25 14:39 | P.TEE ---
Description of Procedure(s): Procedure performed: Transesophageal Echocardiogram with color flow doppler, pulsed wave doppler and continuous wave doppler, moderate conscious sedation Moderate conscious sedation: Moderate conscious sedation was supplied with direct supervision of myself using Versed and Fentanyl. Complications: none Indications: cryptogenic stroke PROCEDURE: After the risks, benefits and alternatives of the above mentioned procedure was explained in detail with the patient, informed consent was obtained. Patient was brought to the lab in a fasting state. Patient was given IV Versed and Fentanyl for sedation. The throat was sprayed with Hurricane to anesthetize the throat. A lubricated Omni probe was then introduced into the es ophagus and stomach and multiple views were obtained. 2D echo with color flow doppler, pulsed wave doppler and continuous wave doppler was utilized. Agitated saline bubbles were injected to assess for any intra-atrial shunt. The probe was then removed. Patient tolerated the procedure well. Patient was transferred to the post procedure area in stable and satisfactory condition. FINDINGS: 1. The aortic valve is tricuspid and function normally. 2. The mitral valve appears be normal with mild regurgitation. 3. Tricuspid valve appears to be normal. 4. The interatrial septum is aneurysmal with +PFO. 5. Left atrial appendage is free of clot. 6. Left ventricular EF 55%
== END 2024-09-25 14:07 | disposition home or self-care (01) ==
LOC: CATHCVL 10:38
PROVIDERS: ATTEND Internal Medicine
DX: I63.9 Cerebral infarction, unspecified (principal); R06.09 Other forms of dyspnea; I10 Essential (primary) hypertension; E78.5 Hyperlipidemia, unspecified; F17.210 Nicotine dependence, cigarettes, uncomplicated; Z88.5 Allergy status to narcotic agent; Z79.82 Long term (current) use of aspirin; Z79.02 Long term (current) use of antithrombotics/antiplatelets; Z79.899 Other long term (current) drug therapy
CPT/HCPCS: 93312; 93320; 93325; J2250; J3010

== ENCOUNTER 2024-10-23 08:59 | Day surgery (SDC) | payer BC ==
[2024-10-23] MEDS: SODIUM CHLORIDE 0.9% 1,000 ML IV SCH ×2 (09:28→11:45)
[2024-10-23] MEDS: ASPIRIN 81 MG PO STA (09:28)
[2024-10-23] MEDS: IV FLUID CONTINUATION 1,000 ML IV ONE (09:44)
[2024-10-23 10:00] LABS: Basophils % (A) 1 %; Eosinophils # (A) 0.1 k/uL (0-0.7); Eosinophils % (A) 2 %; HCT 45.8 % (39.0-53.0); HGB 14.6 gm/dL (13.0-17.5); Lymphocytes # (A) 1.8 k/uL (1.0-4.8); Lymphocytes % (A) 31 %; MCH 27.2 pg (25.0-35.0); MCHC 31.8 g/dL (31.0-37.0); MCV 85.5 fL (80.0-100.0); Mean Platelet Volume 7.8; Monocytes # (A) 0.4 k/uL (0-1.0); Monocytes % (A) 6 %; Neutrophils # (A) 3.4 k/uL (1.3-7.7); Neutrophils % (A) 59 %; Platelet Count 229 k/uL (150-450); RBC 5.37 m/uL (4.30-5.90); RDW 12.6 % (11.5-15.5); WBC 5.8 k/uL (3.8-10.6)
[2024-10-23] MEDS: HEPARIN SODIUM (1,000 UNIT/ML) 1,000 UNIT in SODIUM CHLORIDE 0.9% 1,000 ML IRRIGATION ONE (10:23)
[2024-10-23] MEDS: ceFAZolin 1,000 MG VIAL IVPB ONE (10:30)
[2024-10-23] MEDS: fentaNYL (PF) 50 MCG/ML 2 ML AMP IVP ONE (10:33)
[2024-10-23] MEDS: MIDAZOLAM 2 MG/2 ML VIAL IVP ONE (10:33)
[2024-10-23] MEDS: LIDOCAINE 1% INJ 10MG/ML (20 ML MDV) SQ ONE (10:37)
[2024-10-23] MEDS: HEPARIN SODIUM 1,000 UN/ML (10ML VL) IVP ONE (10:39)
[2024-10-23 10:49] LABS: African American GFR (CKD) >90 (>60 ml/min/1.73 sqM); Anion Gap 12 mmol/L; Blood Urea Nitrogen 14 mg/dL (9-20); Calcium 9.8 mg/dL (8.4-10.2); Carbon Dioxide 24 mmol/L (22-30); Chloride 103 mmol/L (98-107); Glucose 93 mg/dL (74-99); Non-African American GFR(CKD) >90 (>60 ml/min/1.73 sqM); Potassium 4.2 mmol/L (3.5-5.1); Sodium 139 mmol/L (137-145)
--- NOTE | 2024-10-23 15:48 | P.PCN ---
Description of Procedure: TRANSCATHETER CLOSURE OF INTERATRIAL COMMUNICATION PROCEDURES PERFORMED: 1. Closure of interatrial communication via a right femoral venous percutaneous approach using a 25mm Amplatzer Occluder device. 2. Intracardiac echocardiography using an 8-Bahraini AcuNav ultrasound catheter 3. RFV access under direct U/S visualization x 2 OPERATORS: 1. Allan Jerez DO interventional cardiology INDICATIONS: History of thromboembolic CVA. PFO with color flow across inter-atrial septum and positive bubble study by JARRET. SEDATION: Under my direct supervision the patient was administered moderate conscious sedation with Versed and Fentanyl for a total of 37 minutes. PRPOCEDURE SUMMARY: Prior to sedation, the risks, benefits and alternatives of the procedure were discussed with the patient in detail and all questions were answered to the patient's satisfaction. Both verbal and written consents were obtained. The patient was transported to the cardiac catheterization suite and prepped and draped in the usual sterile fashion for access to the right groin. The patient received conscious sedation in the form of Versed and Fentanyl intravenously. 2% lidocaine was infused into the right groin for local anesthesia. Then, under direct ultrasound visualization, right femoral vein was accessed using micropuncture technique and two 8-Bahraini 11 cm sheaths were placed into the right femoral vein. The 8-Bahraini AcuNav ICE ultrasound catheter was then advanced through into the right atrium where intracardiac echocardiography was performed. PRE PROCEDURE ULTRASOUND: This demonstrated no evidence of pericardial effusion. It demonstrated normal appearing aortic and mitral valves. Overall the left ventricular function and chamber size appeared within normal limits. The LV function appeared preserved with no significant wall motion abnormalities. There was color flow visualized across the inter-atrial septum with ICE. The tricuspid valve appeared normal and the RV appeared normal in size. The visualized portions of the left atrium and left atrial appendage demonstrated no significant abnormalities. After images were obtained with the ICE catheter, a 6-Bahraini multipurpose catheter was inserted into the RFV and was used to cross the septum into the left atrium. Heparin was given to keep ACT > 200-250. The catheter was then advanced into the LA and placed in the L superior pulmonary vein. A 0.035 260 cm Diego wire was then advanced via the catheter and placed in the vein. The catheter was then removed and the 8-Bahraini sheath was also removed over the Amplatzer wire. This was exchanged for a 8 [place]raini 54-[id number]-[id number] delivery sheath with introducer. This was advanced to the septal defect where the sheath was then advanced across the defect over the Amplatzer wire. The introducer was removed and blood was drawn. The Amplatzer wire was then removed. A 25mm Amplatzer PFO occluder device was then opened, prepped and then loaded into the sheath. Initially both discs were withdrawn from the catheter however LA disc did not catch and was actually in the RA. Therefore it was recaptured and reprepped. Under fluoroscopy and ultrasound guidance, the Amplatzer occluder was then again advanced through the edge of the sheath. The left atrial side was deployed and was pulled back to the interatrial septum and the right atrial side was deployed. With the device still captured, intracardiac echocardiography was performed demonstrating good capture on all 6 rims with no impingement on valvular function. Patient did have transient ST elevations in the inferior leads and some epigastric discomfort which lasted approximately 2 minutes then completely resolved possibly related to transeptal approach or mi croembolization. The delivery system was then released and removed. The final intracardiac echocardiographic images were again once obtained. POST DELIVERY INTRACARDIAC ECHOCARDIOGRAPHIC IMAGES: This demonstrated again no evidence of pericardial effusion. All 6 rims were visualized and demonstrated adequate purchase and the device in stable position. There was no further evidence of interatrial communication by color flow Doppler. The aortic and mitral valves appeared to be functioning appropriately with no impingement of flow. Again overall the left ventricular function appeared within normal limits and again, no effusion was noted. At this point, 8-Bahraini ICE catheter and the torque-view sheath was removed A Z stitch was placed to achieve hemostasis. The patient was transferred to the CVSU in stable condition. COMPLICATIONS: None. FINAL IMPRESSIONS: Successful closure of a PFO with a 25mm Amplatzer PFO occluder device. No evidence of complication, arrhythmia or other noted. RECOMMENDATIONS: A limited transthoracic echocardiogram will be obtained in the morning. The patient will be transferred to the floor, monitoring overnight. Will plan for discharge in the morning. Aspirin daily, Plavix 75 mg daily, followup in the clinic in approximately 1 week as previously scheduled. Antibiotic prophylaxis for any procedure for one year.
[2024-10-23] MEDS: ACETAMINOPHEN TAB 325 MG TAB PO PRN (18:50)
[2024-10-23] MEDS: ALPRAZolam 0.25 MG TAB PO PRN (18:51)
[2024-10-24] MEDS: ASPIRIN 81 MG PO SCH (06:37)
--- NOTE | 2024-10-24 07:29 | XR ---
EXAMINATION TYPE: XR chest 2V DATE OF EXAM: 10/24/2024 6:54 AM COMPARISON: Chest radiographs from 05/16/2024 TECHNIQUE: XR chest 2V Frontal and lateral views of the chest. CLINICAL INDICATION:Male, 54 years old with history of ASD/PFO placement; FINDINGS: Lungs/Pleura: There is no evidence of pleural effusion, focal consolidation, or pneumothorax. Pulmonary vascularity: Unremarkable. Heart/mediastinum: Cardiomediastinal silhouette is nonenlarged. Post surgical changes from atriosepta l closure device. Musculoskeletal: No acute osseous pathology. Mild multilevel degenerative disc disease. IMPRESSION: Postsurgical changes from atrial septal closure device. No evidence for acute process. [facility], , 10/24/2024 7:27 AM
[2024-10-24 07:38] LABS: African American GFR (CKD) >90 (>60 ml/min/1.73 sqM); Anion Gap 12 mmol/L; Blood Urea Nitrogen 15 mg/dL (9-20); Calcium 9.5 mg/dL (8.4-10.2); Carbon Dioxide 23 mmol/L (22-30); Chloride 103 mmol/L (98-107); Glucose 100 mg/dL (74-99); Non-African American GFR(CKD) >90 (>60 ml/min/1.73 sqM); Potassium 4.2 mmol/L (3.5-5.1); Sodium 138 mmol/L (137-145)
[2024-10-24 08:10] LABS: Basophils % (A) 1 %; Eosinophils # (A) 0.2 k/uL (0-0.7); Eosinophils % (A) 3 %; HCT 42.9 % (39.0-53.0); HGB 13.6 gm/dL (13.0-17.5); Lymphocytes # (A) 1.7 k/uL (1.0-4.8); Lymphocytes % (A) 28 %; MCH 27.3 pg (25.0-35.0); MCHC 31.8 g/dL (31.0-37.0); Monocytes # (A) 0.5 k/uL (0-1.0); Monocytes % (A) 8 %; Neutrophils # (A) 3.6 k/uL (1.3-7.7); Neutrophils % (A) 59 %; Platelet Count 224 k/uL (150-450); RBC 4.98 m/uL (4.30-5.90); RDW 12.7 % (11.5-15.5)
[2024-10-24] MEDS: CLOPIDOGREL 75 MG TAB PO SCH (08:14)
[2024-10-24] MEDS: VALSARTAN 160 MG TAB PO SCH (08:14)
[2024-10-24] MEDS: amLODIPine 10 MG TAB PO SCH (08:14)
[2024-10-24] MEDS: ATORVASTATIN 40 MG TAB PO SCH (08:14)
[2024-10-24 08:19] VITALS: BP 104/67; PULSE 81; RESP 18; TEMP 97.9
[2024-10-24 11:21] VITALS: BMI 32.4
--- NOTE | 2024-10-24 15:14 | CA ---
Transthoracic Echo Report Name: Hector Samuels Age: 54 Gender: M : 1970 Exam Date: 10/24/2024 08:52 Exam Location: [facility] Ht (in): 67 Wt (lb): 210 Ordering Physician: Allan Jerez DO ([email or web address]) Attending/Referring Phys: Manager Drug Alejandra Rabago RDCS Procedure CPT: Indications: Post ASD/PFO Insertion Cardiac Hx: Technical Quality: Good Contrast 1: Total Dose (mL): Contrast 2: Total Dose (mL): MEASUREMENTS (Male / Female) Normal Values 2D ECHO LV Diastolic Diameter PLAX 5.0 cm 4.2 - 5.9 / 3.9 - 5.3 cm LV Systolic Diameter PLAX 3.4 cm IVS Diastolic Thickness 0.9 cm 0.6 - 1.0 / 0.6 - 0.9 cm LVPW Diastolic Thickness 1.0 cm 0.6 - 1.0 / 0.6 - 0.9 cm LV Relative Wall Thickness 0.4 RV Internal Dim ED PLAX 3.6 cm LA Systolic Diameter LX 4.2 cm 3.0 - 4.0 / 2.7 - 3.8 cm LV Diastolic Volume MOD 4C 171.7 cm??? LV Systolic Volume MOD 4C 68.9 cm??? LV Ejection Fraction MOD 4C 59.9 % LV Cardiac Index MOD 4C 3528.6 cm???/min???m??? LV Diastolic Length 4C 8.7 cm LV Systolic Length 4C 6.6 cm LV Diastolic Volume MOD 2C 89.5 cm??? LV Systolic Volume MOD 2C 43.9 cm??? LV Ejection Fraction MOD 2C 51.0 % LV Cardiac Index MOD 2C 1567.3 cm???/min???m??? LV Diastolic Length 2C 7.7 cm LV Systolic Length 2C 6.5 cm LA Volume 80.4 cm??? 18 - 58 / 22 - 52 cm??? LA Volume Index 37.3 cm???/m??? 16 - 28 cm???/m??? M-MODE Aortic Root Diameter MM 3.1 cm DOPPLER AV Peak Velocity 146.0 cm/s AV Peak Gradient 8.5 mmHg MV Area PHT 3.0 cm??? Mitral E Point Velocity 66.4 cm/s Mitral A Point Velocity 62.1 cm/s Mitral E to A Ratio 1.1 MV Deceleration Time 252.6 ms TR Peak Velocity 232.5 cm/s TR Peak Gradient 21.6 mmHg Right Ventricular Systolic Press 26.4 mmHg FINDINGS Left Ventricle Left ventricular ejection fraction is estimated at 55-60 %. Left ventricular cavity size normal. Left ventricular wall thickness normal. Right Ventricle Mild right ventricular dilatation. Right ventricular systolic pressure within normal limits. Right Atrium Mild right atrial dilatation. No right atrial thrombus or mass seen. PFO closure device in place. No shunt noted Left Atrium Mildly increased left atrial diameter. Moderately increased left atrial volume. Mildly increased left atrial area. No left atrial thrombus or mass present. Mitral Valve Mitral valve thickened. Trace to mild mitral regurgitation. No mitral stenosis. No evidence for mitral valve prolapse. Aortic Valve Trileaflet aortic valve. No aortic valve stenosis or regurgitation. Tricuspid Valve Structurally normal tricuspid valve. Mild tricuspid regurgitation. Pulmonic Valve Structurally normal pulmonic valve. Trace pulmonic regurgitation. Pericardium No pericardial or pleural effusion. Aorta Normal size aortic root and proximal ascending aorta. CONCLUSIONS Left ventricular ejection fraction 55-60% PFO closure device in place without significant leak or shunt Mildly dilated left atrium Mild tricuspid regurgitation Previewed by: Dr. Allan Jerez DO (Electronically Signed) Final Date: 24 October 2024 15:14
== END 2024-10-24 13:05 | disposition home or self-care (01) ==
LOC: CATHCVL 08:59 → 3SCARD 14:08 → CATHCVL 10-24 13:05
PROVIDERS: ATTEND Internal Medicine
DX: I08.1 Rheumatic disorders of both mitral and tricuspid valves (principal); Q21.12 Patent foramen ovale; I10 Essential (primary) hypertension; E78.5 Hyperlipidemia, unspecified; Z79.82 Long term (current) use of aspirin; Z79.02 Long term (current) use of antithrombotics/antiplatelets; Z79.899 Other long term (current) drug therapy; Z86.73 Personal history of transient ischemic attack (TIA), and cerebral infarction without residual deficits
CPT/HCPCS: 99152; 99153; 93306; 86900; 86901; 80048 ×2; 85025 ×2; 86850; 71046; J2250; J0690; J2003; J3010; J1644